=== PATIENT | male | born 1955 | race Caucasian/White ===

== ENCOUNTER 2022-11-21 14:48 | Outpatient (CLI) | payer MEDICARE, SELFPAY ==
[2022-11-21 16:26] LABS: Color, Urine Yellow (Yellow); Glucose, Dipstick Normal (Normal); Ketone-Dipstick Negative (Negative); Leukocyte Esterase-Dipstick 25 /ul (Negative); Nitrite-Dipstick Negative (Negative); Occult Blood-Urine 10 /ul (Negative); Protein-Dipstick 15 mg/dl (Negative); Urine Bilirubin Dipstick Negative (Negative); Urine Clarity Clear (Clear); Urine Urobilinogen Normal (Normal); Urine pH 6.5 (5.0 - 8.0)
[2022-11-21 16:32] LABS: Absolute Lymphocyte Count 2.02 X10^3/uL (0.83-4.51); Absolute Neutrophil Count 5.1 X10^3/uL (2.0-7.7); Basophil# 0.06 X10^3/uL; Basophil% 0.8 % (0-1); Eosinophil# 0.09 X10^3/uL; Eosinophils% 1.1 % (0-5); Hematocrit 41.9 % (40-54); Hemoglobin 14.1 g/dL (13.0-16.5); Lymphocyte # 2.02 X10^3/ul (0.83-4.51); Lymphocyte % 25.7 % (19-41); Mean Corp Hgb Conc 33.7 g/dL (32-36); Mean Corpuscular Hgb 32.5 pg (27.0-32.0); Mean Corpuscular Volume 96.5 fL (80-94); Monocyte# 0.55 X10^3/uL; NRBC Flagged by Analyzer 0 % (0-5); Neutrophil # 5.12 X10^3/uL (2.7-7.7); Neutrophil % 65.1 % (47-70); Platelet Count 331 K/mm3 (150-450); RBC Distribution Width CV 12.8 % (11.6-14.6); RBC Distribution Width SD 46.1 fl (35.1-43.9); Red Blood Count 4.34 M/mm3 (4.6-6.2); White Blood Count 7.9 K/mm3 (4.4-11.0)
[2022-11-21 16:36] LABS: Erythrocyte Sedimentation Rate 7 mm/hr (0-20); Protein, Urine (Random) 20.8 mg/dL (<11.9); Protein:Creat Ratio 142 mg/g CRE (0-200)
[2022-11-21 17:01] LABS: International Normalized Ratio 1.1; Prothrombin Time (Protime)PT. 13.5 SECONDS (11.7-14.9)
[2022-11-21 17:02] LABS: Partial Thromboplast Time 30.4 Seconds (24.1-36.2)
[2022-11-21 17:07] LABS: ALB/GLOB Ratio 1.1 RATIO (0.9-2.4); AST(SGOT) 17 U/L (15-37); Alanine Aminotransfer ALT/SGPT 22 U/L (16-61); Albumin, Serum 3.9 g/dL (3.2-5.0); Alkaline Phosphatase 81 U/L (45-117); Anion Gap 8 (5-15); BUN 18 mg/dL (7-18); BUN/Creat Ratio 17.3 RATIO (10-20); CRP < 2.90 mg/L (0.0-3.0); Chloride 107 mmol/L (98-107); Creatinine, Serum 1.04 mg/dL (0.70-1.30); EST Glomerular Filtration Rate 76 mL/min (>60); Est Glom Filt Rate - Afr Amer 92 mL/min (>60); Globulin 3.6 g/dL (2.2-4.2); Glucose 92 mg/dL (74-106); Potassium 3.5 mmol/L (3.5-5.1); Protein, Total 7.5 g/dL (6.4-8.2); Sodium Level 140 mmol/L (136-145)
[2022-11-21 17:41] LABS: Hepatitis B Surface Antibody Non-Reactive; Hepatitis B Surface Antigen Non-Reactive (Nonreactive); Hepatitis C Antibody Non-Reactive (Nonreactive)
[2022-11-26 13:06] LABS: Dilute Prothrombin Time (dPT) 35.9 sec (0.0-47.6); Dilute Russell Viper Venom 36.1 sec (0.0-47.0); Hexagonal Phase Phospholipid 7 sec (0-11); Thrombin Time 17.1 sec (0.0-23.0); dPT Confirm Ratio 1.19 Ratio (0.00-1.34)
[2022-11-26 22:31] LABS: Interpretation Comment: (.); PTT-LA 38.1 sec (0.0-51.9)
== END 2022-11-21 23:59 | disposition home or self-care (01) ==
PROVIDERS: PCP Nurse Practitioner Family; Visit Provider Internal Medicine Rheumatology
DX: M06.4 Inflammatory polyarthropathy (principal); R76.8 Other specified abnormal immunological findings in serum
CPT/HCPCS: 36415; 80053; 81002; 82570; 84156; 85025; 85598; 85610; 85652; 85730; 86140; 86706; 86803; 87340

== ENCOUNTER → 2023-02-07 | Outpatient (CLI) | payer MEDICARE, SELFPAY ==
[2023-02-07 12:45] LABS: Absolute Lymphocyte Count 1.21 X10^3/uL (0.83-4.51); Absolute Neutrophil Count 4.6 X10^3/uL (2.0-7.7); Basophil# 0.04 X10^3/uL; Basophil% 0.6 % (0-1); Eosinophil# 0.06 X10^3/uL; Eosinophils% 0.9 % (0-5); Hematocrit 42.3 % (40-54); Hemoglobin 13.8 g/dL (13.0-16.5); Lymphocyte # 1.21 X10^3/ul (0.83-4.51); Lymphocyte % 18.7 % (19-41); Mean Corp Hgb Conc 32.6 g/dL (32-36); Mean Corpuscular Hgb 32.8 pg (27.0-32.0); Mean Corpuscular Volume 100.5 fL (80-94); Mean Platelet Vol. 10.4 fl (6.2-12.0); Monocyte# 0.53 X10^3/uL; Monocyte% 8.2 % (0-10); NRBC Flagged by Analyzer 0 % (0-5); Neutrophil # 4.61 X10^3/uL (2.7-7.7); Neutrophil % 71.1 % (47-70); Platelet Count 324 K/mm3 (150-450); RBC Distribution Width CV 12.9 % (11.6-14.6); RBC Distribution Width SD 47.5 fl (35.1-43.9); Red Blood Count 4.21 M/mm3 (4.6-6.2); White Blood Count 6.5 K/mm3 (4.4-11.0)
[2023-02-07 13:26] LABS: AST(SGOT) 12 U/L (15-37); Alanine Aminotransfer ALT/SGPT 22 U/L (16-61); Albumin, Serum 3.5 g/dL (3.2-5.0); Alkaline Phosphatase 74 U/L (45-117); Anion Gap 1 (5-15); BUN 24 mg/dL (7-18); BUN/Creat Ratio 24.2 RATIO (10-20); Calcium,Total 9.3 mg/dL (8.5-10.1); Chloride 111 mmol/L (98-107); Creatinine, Serum 0.99 mg/dL (0.70-1.30); EST Glomerular Filtration Rate 80 mL/min (>60); Est Glom Filt Rate - Afr Amer 97 mL/min (>60); Globulin 3.5 g/dL (2.2-4.2); Glucose 108 mg/dL (74-106); Potassium 3.8 mmol/L (3.5-5.1); Sodium Level 140 mmol/L (136-145)
== END | disposition home or self-care (01) ==
PROVIDERS: PCP Nurse Practitioner Family; Referring Provider Internal Medicine Rheumatology; Visit Provider Internal Medicine Rheumatology
DX: M06.4 Inflammatory polyarthropathy (principal); R76.8 Other specified abnormal immunological findings in serum; Z79.899 Other long term (current) drug therapy
CPT/HCPCS: 36415; 80053; 85025

== ENCOUNTER → 2023-04-04 | Outpatient (CLI) | payer SELFPAY ==
[2023-04-04 09:59] LABS: Absolute Neutrophil Count 4.5 X10^3/uL (2.0-7.7); Basophil# 0.05 X10^3/uL; Basophil% 0.7 % (0-1); Eosinophil# 0.04 X10^3/uL; Eosinophils% 0.6 % (0-5); Hematocrit 40.8 % (40-54); Hemoglobin 13.5 g/dL (13.0-16.5); Lymphocyte % 22.4 % (19-41); Mean Corp Hgb Conc 33.1 g/dL (32-36); Mean Corpuscular Hgb 33.1 pg (27.0-32.0); Mean Platelet Vol. 9.7 fl (6.2-12.0); Monocyte# 0.54 X10^3/uL; Monocyte% 8.1 % (0-10); NRBC Flagged by Analyzer 0 % (0-5); Neutrophil # 4.54 X10^3/uL (2.7-7.7); Neutrophil % 67.8 % (47-70); Platelet Count 339 K/mm3 (150-450); RBC Distribution Width CV 13.3 % (11.6-14.6); RBC Distribution Width SD 49.2 fl (35.1-43.9); Red Blood Count 4.08 M/mm3 (4.6-6.2); White Blood Count 6.7 K/mm3 (4.4-11.0)
[2023-04-04 10:43] LABS: AST(SGOT) 17 U/L (15-37); Alanine Aminotransfer ALT/SGPT 22 U/L (16-61); Albumin, Serum 3.4 g/dL (3.2-5.0); Alkaline Phosphatase 65 U/L (45-117); Anion Gap 6 (5-15); BUN 18 mg/dL (7-18); BUN/Creat Ratio 19.1 RATIO (10-20); Calcium,Total 8.8 mg/dL (8.5-10.1); Chloride 109 mmol/L (98-107); Creatinine, Serum 0.94 mg/dL (0.70-1.30); EST Glomerular Filtration Rate 85 mL/min (>60); Est Glom Filt Rate - Afr Amer 102 mL/min (>60); Globulin 3.3 g/dL (2.2-4.2); Glucose 128 mg/dL (74-106); Potassium 3.4 mmol/L (3.5-5.1); Protein, Total 6.7 g/dL (6.4-8.2); Sodium Level 139 mmol/L (136-145)
== END | disposition home or self-care (01) ==
PROVIDERS: PCP Nurse Practitioner Family; Referring Provider Internal Medicine Rheumatology; Visit Provider Internal Medicine Rheumatology
DX: M06.4 Inflammatory polyarthropathy (principal); R76.8 Other specified abnormal immunological findings in serum; Z79.899 Other long term (current) drug therapy
CPT/HCPCS: 36415; 80053; 85025

== ENCOUNTER → 2023-04-20 | Outpatient (CLI) | payer SELFPAY ==
[2023-04-20 17:45] LABS: Pathologist Comment May follow
[2023-04-20 18:13] LABS: RBC /Synovial Fluid 0.052 10^6/uL (0); Synovial Fld Mononuclear WBC # 0.065 10^3/ul; Synovial Fld Mononuclear WBC % 45.1 %; Synovial Fld Polynuclear WBC # 0.079 10^3/uL; Synovial Fld Polynuclear WBC % 54.9 %
[2023-04-20 19:18] LABS: Lymph 46 %; Monocyte /Synovial Fluid 16 %; Neutrophil 29 % (0-25); Other Cell /Synovial Fluid 9 %
[2023-04-20 19:24] LABS: AUTO B FLUID DILUENT BKGD CT WBC <0.1 RBC <0.01 (W<.1,R<.01); CRYSTALS, BODY FLUID NO CRYSTALS SEEN; Source- Body Fluid SYNOVIAL
[2023-04-20 19:25] LABS: Appearance /Synovial Fluid Cloudy (CLEAR); Body Fluid QC Type(s) BF3Q,BF4Q; Color / Synovial Fluid Red (Pale Yellow); Source / Synovial Fluid LEFT KNEE
[2023-04-23 12:54] LABS: Pathologist Review Reviewed
== END | disposition home or self-care (01) ==
PROVIDERS: PCP Nurse Practitioner Family; Visit Provider Internal Medicine Rheumatology
DX: M06.4 Inflammatory polyarthropathy (principal); R76.8 Other specified abnormal immunological findings in serum; M19.041 Primary osteoarthritis, right hand; Z79.899 Other long term (current) drug therapy
CPT/HCPCS: 87070; 87075; 87205; 89050; 89051; 89060

== ENCOUNTER → 2023-06-29 | Outpatient (CLI) | payer SELFPAY ==
[2023-06-29 10:14] LABS: Absolute Lymphocyte Count 1.28 X10^3/uL (0.83-4.51); Absolute Neutrophil Count 7.9 X10^3/uL (2.0-7.7); Basophil# 0.07 X10^3/uL; Basophil% 0.7 % (0-1); Eosinophil# 0.06 X10^3/uL; Eosinophils% 0.6 % (0-5); Hematocrit 40.9 % (40-54); Hemoglobin 13.6 g/dL (13.0-16.5); Lymphocyte # 1.28 X10^3/ul (0.83-4.51); Mean Corp Hgb Conc 33.3 g/dL (32-36); Mean Corpuscular Hgb 34.3 pg (27.0-32.0); Mean Corpuscular Volume 103.3 fL (80-94); Mean Platelet Vol. 9.1 fl (6.2-12.0); Monocyte# 0.49 X10^3/uL; NRBC Flagged by Analyzer 0 % (0-5); Neutrophil # 7.91 X10^3/uL (2.7-7.7); Neutrophil % 80.2 % (47-70); Platelet Count 365 K/mm3 (150-450); RBC Distribution Width CV 13.1 % (11.6-14.6); RBC Distribution Width SD 49.5 fl (35.1-43.9); Red Blood Count 3.96 M/mm3 (4.6-6.2); White Blood Count 9.9 K/mm3 (4.4-11.0)
[2023-06-29 10:55] LABS: ALB/GLOB Ratio 1.1 RATIO (0.9-2.4); AST(SGOT) 13 U/L (15-37); Alanine Aminotransfer ALT/SGPT 23 U/L (16-61); Albumin, Serum 3.5 g/dL (3.2-5.0); Alkaline Phosphatase 64 U/L (45-117); Anion Gap 7 (5-15); BUN 15 mg/dL (7-18); BUN/Creat Ratio 15.1 RATIO (10-20); Calcium,Total 9.1 mg/dL (8.5-10.1); Chloride 106 mmol/L (98-107); Creatinine, Serum 0.99 mg/dL (0.70-1.30); EST Glomerular Filtration Rate 80 mL/min (>60); Est Glom Filt Rate - Afr Amer 96 mL/min (>60); Globulin 3.2 g/dL (2.2-4.2); Glucose 117 mg/dL (74-106); Potassium 3.9 mmol/L (3.5-5.1); Protein, Total 6.7 g/dL (6.4-8.2); Sodium Level 138 mmol/L (136-145)
== END | disposition home or self-care (01) ==
PROVIDERS: PCP Nurse Practitioner Family; Referring Provider Internal Medicine Rheumatology; Visit Provider Internal Medicine Rheumatology
DX: M06.4 Inflammatory polyarthropathy (principal); R76.8 Other specified abnormal immunological findings in serum; Z79.899 Other long term (current) drug therapy
CPT/HCPCS: 36415; 80053; 85025

== ENCOUNTER → 2024-01-02 | Outpatient (CLI) | payer MEDICARE, SELFPAY ==
[2024-01-02 09:07] LABS: Absolute Lymphocyte Count 2.21 X10^3/uL (0.83-4.51); Absolute Neutrophil Count 3.8 X10^3/uL (2.0-7.7); Basophil# 0.05 X10^3/uL; Basophil% 0.7 % (0-1); Eosinophil# 0.08 X10^3/uL; Eosinophils% 1.2 % (0-5); Hematocrit 42.7 % (40-54); Hemoglobin 14.2 g/dL (13.0-16.5); Lymphocyte # 2.21 X10^3/ul (0.83-4.51); Lymphocyte % 32.7 % (19-41); Mean Corp Hgb Conc 33.3 g/dL (32-36); Mean Corpuscular Hgb 31.9 pg (27.0-32.0); Mean Platelet Vol. 9.6 fl (6.2-12.0); Monocyte# 0.62 X10^3/uL; Monocyte% 9.2 % (0-10); NRBC Flagged by Analyzer 0 % (0-5); Neutrophil # 3.77 X10^3/uL (2.7-7.7); Neutrophil % 55.9 % (47-70); Platelet Count 300 K/mm3 (150-450); RBC Distribution Width CV 12.9 % (11.6-14.6); RBC Distribution Width SD 45.8 fl (35.1-43.9); Red Blood Count 4.45 M/mm3 (4.6-6.2); White Blood Count 6.8 K/mm3 (4.4-11.0)
[2024-01-02 09:37] LABS: ALB/GLOB Ratio 1.1 RATIO (0.9-2.4); AST(SGOT) 14 U/L (15-37); Alanine Aminotransfer ALT/SGPT 15 U/L (16-61); Albumin, Serum 3.6 g/dL (3.2-5.0); Alkaline Phosphatase 79 U/L (45-117); Anion Gap 7 (5-15); BUN 16 mg/dL (7-18); Calcium,Total 8.9 mg/dL (8.5-10.1); Chloride 110 mmol/L (98-107); Cholesterol 217 mg/dL (200); Creatinine, Serum 0.84 mg/dL (0.70-1.30); EST Glomerular Filtration Rate 97 mL/min (>60); Est Glom Filt Rate - Afr Amer 117 mL/min (>60); Globulin 3.3 g/dL (2.2-4.2); Glucose 100 mg/dL (74-106); High Density Lipoprotein 78 mg/dL; Potassium 3.8 mmol/L (3.5-5.1); Protein, Total 6.9 g/dL (6.4-8.2); Sodium Level 140 mmol/L (136-145); Triglycerides 115 mg/dL; Very Low Density Lipoprotein 23 mg/dL (5-40)
== END | disposition home or self-care (01) ==
PROVIDERS: PCP Nurse Practitioner Family; Referring Provider Nurse Practitioner Family; Visit Provider Nurse Practitioner Family
DX: E78.5 Hyperlipidemia, unspecified (principal); N40.0 Benign prostatic hyperplasia without lower urinary tract symptoms; I10 Essential (primary) hypertension
CPT/HCPCS: 36415; 80053; 80061; 84153; 85025

== ENCOUNTER → 2024-01-17 | Outpatient (CLI) | payer MEDICARE, SELFPAY | END | disposition home or self-care (01) | LOC: LAB 09:00 | PROVIDERS: PCP Nurse Practitioner Family; Referring Provider Nurse Practitioner; Visit Provider Nurse Practitioner | DX: R97.20 Elevated prostate specific antigen [PSA] (principal) | CPT/HCPCS: 36415; 84153 ==

== ENCOUNTER → 2024-01-22 | Outpatient (CLI) | payer MEDICARE, SELFPAY ==
--- NOTE | 2024-01-22 | PROSBIL_PTH ---
PATIENT: DALILA JANSEN LOC: [facility] U#:[id number] AGE/SX: 68/M ROOM: RE01/22/[address]: Dr. Howie Elmore MD : 1955 BED: DIS: 01/22/2024 SPEC #: [id number] RECD: 01/23/24 10:40 STATUS: JESSICA REZaria #: [id number] ALTA: 01/22/24 00:[address]: Howie Elmore DEPT: SURGICAL PATHOLOGY RECD BY: Jovi Kruse ENTERED: 01/23/24 10:40 SP TYPE: PROST BX OT DR: Cassie Roth, JEWELRY SETTER-C Tissues: A - PROSTATE RIGHT B - PROSTATE RIGHT C - PROSTATE RIGHT D - PROSTATE LEFT E - PROSTATE LEFT F - PROSTATE LEFT Procedures: PROSTATE BX HEADER OPERATION: Prostate biopsy PRE-OP DIAGNOSIS: Elevated PSA TISSUE SUBMITTED: A - Right apex, B - Right mid, C - Right base, D - Left apex, E - Left mid, F - Left base MICROSCOPIC DIAGNOSIS A. Right prostate, apex, core biopsy: Prostatic adenocarcinoma. Rosalina grade: 4 + 3 =7 Number of cores involved: 1/1 Proportion of tissue involved: ~30% Perineural invasion: Present, focal Greatest tumor length: 0.4cm Focal high-grade prostatic intraepithelial neoplasia (HGPIN). B. Right prostate, mid, core biopsy: Prostatic adenocarcinoma. Rosalina grade: 5 + 3 =8 Number of cores involved: 1/1 Proportion of tissue involved: >90% Perineural invasion: Present, focal Greatest tumor length: 1.0cm Focal high-grade prostatic intraepithelial neoplasia (HGPIN). C. Right prostate, base, core biopsy: Prostatic adenocarcinoma. Rosalina grade: 5 + 4 =9 Number of cores involved: 1/1 Proportion of tissue involved: >90% Perineural invasion: Not identified. Greatest tumor length: 1.0cm D. Left prostate, apex, core biopsy: Prostatic tissue, negative for malignancy. E. Left prostate, mid, core biopsy: Prostatic adenocarcinoma. Rosalina grade: 5 + 3 =8 Number of cores involved: 1/1 Proportion of tissue involved: ~70% Perineural invasion: Present, focal Greatest tumor length: 0.6cm F. Left prostate, base, core biopsy: Prostatic adenocarcinoma. Varney grade: 5 + 4 =9 Number of cores involved: 1/1 Proportion of tissue involved: >90% Perineural invasion: not identified. Greatest tumor length: 1.1cm SJ/mr 01/24/2024 COMMENT Case has been reviewed in consultation with Dr. Tovar who concurs with the above diagnosis. IDC:AM MICROSCOPIC DESCRIPTION Slides are reviewed. GROSS DESCRIPTION A - Received is one container designated prostate, right apex. The specimen consists of one elongated fragment of light davies-white soft tissue measuring 1.5 cm in length and 0.1 cm in diameter. The specimen is totally submitted in one cassette. B - Received is one container designated prostate, right mid. The specimen consists of one elongated fragment of light davies-white soft tissue each measuring 1.5 cm in length and 0.1 cm in diameter. The specimen is totally submitted in one cassette. C - Received is one container designated prostate, right base. The specimen consists of one elongated fragment of light davies-white soft tissue each measuring 1.2 cm in length and 0.1 cm in diameter. The specimen is totally submitted in one cassette. D - Received is one container designated prostate, left apex. The specimen consists of one elongated fragment of light davies-white soft tissue each measuring 1.5 cm in length and 0.1 cm in diameter. The specimen is totally submitted in one cassette. E - Received is one container designated prostate, left mid. The specimen consists of one elongated fragment of light davies-white soft tissue each measuring 1.0 cm in length and 0.1 cm in diameter. The specimen is totally submitted in one cassette. F - Received is one container designated prostate, left base. The specimen consists of one elongated fragment of light davies-white soft tissue each measuring 1.8 cm in length and 0.1 cm in diameter. The specimen is totally submitted in one cassette. / AM/ 01/23/2024 TC:0 CPT: G0146
== END | disposition home or self-care (01) ==
LOC: LABSPEC 16:41
PROVIDERS: PCP Nurse Practitioner Family; Referring Provider Urology; Visit Provider Urology
DX: R97.20 Elevated prostate specific antigen [PSA] (principal)
CPT/HCPCS: 88305; G0416

== ENCOUNTER → 2024-01-31 | Outpatient (CLI) | payer MEDICARE, SELFPAY ==
--- NOTE | 2024-01-31 09:04 | NM_ITS ---
CLINICAL: 68-year-old male with history of primary prostate carcinoma. WHOLE BODY 99m Tc MDP RADIONUCLIDE BONE SCINTIGRAPHY COMPARISON: None available FINDINGS: Following the intravenous administration of 25.0 mCi of 99m Tc MDP, whole body bone images reveal: 1. Increased radiopharmaceutical concentration is defined in the acromioclavicular, glenohumeral and sternoclavicular compartments of both shoulders, the wrist articulations bilaterally, the right and left knees, the ninth through 12th thoracic and fifth lumbar vertebra. 2. The remaining skeletal structures are scintigraphically unremarkable with normal-appearing renal images and urinary bladder activity identified. NM/Bone Scan Whole Body IMPRESSION: 1. The increase in radiopharmaceutical defined in the bilateral shoulders and wrists, the right-left knee articulations, the thoracic and lumbar spine is commensurate with degenerative arthritis. 2. There is no scintigraphic of diffuse axial skeletal metastatic disease on the current examination. Electronically Signed: Zach Mon DO at 21:46 EDT ,
== END | disposition home or self-care (01) ==
LOC: NM 09:03
PROVIDERS: PCP Nurse Practitioner Family; Referring Provider Urology; Visit Provider Urology
DX: C61 Malignant neoplasm of prostate (principal)
CPT/HCPCS: 78306; A9503

== ENCOUNTER → 2024-02-05 | Outpatient (CLI) | payer MEDICARE, SELFPAY ==
--- NOTE | 2024-02-05 12:29 | CT_ITS ---
STUDY: CT ABDOMEN AND PELVIS WITH CONTRAST REASON FOR EXAM: Male, 68 years old. Malignant neoplasm of prostate. New diagnosis. RADIATION DOSAGE (If Supplied By Facility): CTDIvol = ( 12.01 ) mGy, DLP = ( 666.49 ) mGycm TECHNIQUE: Transaxial images were obtained from the dome of the diaphragm to the symphysis pubis without oral contrast. IV 100mL Isovue-370 was administered. Sagittal and coronal images were reconstructed. Individualized dose optimization techniques were used for this CT. COMPARISON: None. FINDINGS: The visualized lung bases are unremarkable. Coronary artery calcification. There is a 2.3 cm x 2.5 cm hypodensity in the inferior medial aspect of the left lobe of the liver. Peripheral vascularity is seen suggestive of an hemangioma. There is also evidence of a 1.4 cm x 1.5 cm hypodensity in the midportion of the right lobe of the liver as well as a 1 cm x 1 cm nodule in the inferior medial portion of the right lobe of the liver. These most likely represent hemangiomas. Correlation with ultrasound is recommended for further evaluation. Normal gallbladder and extrahepatic biliary system. There are multiple benign calcified granulomata of the spleen. Normal pancreas. Normal bilateral adrenal glands. There is a 2.1 cm staghorn calculus in the dilated right renal pelvis. Calculi are also seen in the lower pole calyx of the right kidney. Punctate calculi are seen in the lower pole calyx of the left kidney as well. There is a moderate-sized hiatal hernia. Normal small intestine. There are multiple colonic diverticula consistent with diverticulosis. The appendix is visualized and appears normal. There is scattered atherosclerotic calcification of the abdominal aorta, without a demonstrated aneurysm. Normal inferior vena cava. Normal retroperitoneum. Normal urinary bladder. Heterogeneous appearance of the prostate. Calcifications are seen within the prostate. The prostate measures 3.4 cm x 3.4 cm. There is a small umbilical hernia containing fat. Small right inguinal hernia containing fat. There are degenerative changes of the visualized lumbar spine. CT/Abdomen/Pelvis WITH Contrast IMPRESSION: Hypodense lesion seen in the liver as described most likely representing hemangiomas. Staghorn calculus in the right renal pelvis with mild pelvic dilatation. Nonobstructive tiny calculi in both lower poles of the right and left kidneys. Sigmoid diverticulosis. Electronically Signed: Bakari Dobbins MD at 13:33 EDT ,
[2024-02-05 13:08] LABS: CREATININE FINGERSTICK 1.1 mg/dL (0.70-1.30); EGFR FINGERSTICK > 60.0000 mL/min (>60)
== END | disposition home or self-care (01) ==
LOC: CT 12:28
PROVIDERS: PCP Nurse Practitioner Family; Referring Provider Urology; Visit Provider Urology
DX: C61 Malignant neoplasm of prostate (principal)
CPT/HCPCS: 74177; Q9967

== ENCOUNTER → 2024-02-26 | Outpatient (CLI) | payer MEDICARE, SELFPAY ==
--- NOTE | 2024-02-26 10:30 | PET_ITS ---
EXAMINATION: PSMA-Pylarify PET-CT INDICATIONS: A 68-year-old male with history of prostate carcinoma presenting for restaging examination. COMPARISON: None available. INDEX LESION SIZE SUV PROMISE SCORE INTERPRETATION Prostate gland 16.9 mm 17.7 2 Fulfills quantitative criteria for viable neoplasm. Left hemipelvis, external iliac lymph node basin 13.5 mm 21.3 3 Fulfills quantitative criteria for viable neoplasm. TECHNIQUE: Following the intravenous administration of 9.61 mCi of PSMA-Pylarify via the right hand, image acquisitions of the head, neck, chest, abdomen and pelvis to the level of the mid thigh at 73 minutes post-tracer distribution reveal: The examination was interpreted using the EANM (Shalini et al., Journal of Nuclear Medicine Molecular Imaging 44:1622, 2017) and PROMISE (Mauricio et al., Journal of Nuclear Medicine 59:469, 2018) interpretive criteria. HEIGHT: 66 inches. WEIGHT: 160 lbs. PSMA expression score PROMISE criteria: High (3): SUV ? parotid-salivary gland, intermediate (2): SUV ? liver, low (1): > blood pool, < liver, (0): < blood pool. SUV reference values: Parotid glands: 24.33 Normal liver parenchyma: 8.9 Blood pool : 1.6 FINDINGS: Head/Neck: Symmetric radiopharmaceutical concentration is defined in the bilateral parotid and submandibular glands. Physiologic uptake is noted in the nasal cavity. There is no evidence of abnormal increased tracer uptake within the context of the cranial vault. CHEST: There is no evidence of abnormal increased radiopharmaceutical within the context of the bilateral hemithorax pulmonary parenchyma, mediastinal structures and right-left thoracic perihilum. Pertinent chest CT findings are as follows. Atherosclerotic calcification is defined in the thoracic aorta without evidence of dilatation, aneurysm formation. Coronary arterial calcification is observed. A large hiatal hernia is defined. Right and left axillary and scattered mediastinal soft tissue densities are ametabolic. There are no parenchymal densities-nodules defined in the right and left hemithorax with quantitatively significant increased FDG uptake. Abdomen/Pelvis: Enhanced tracer concentration is noted in the lower pelvis associated with the base of the prostate gland to the left of the midline. The calculated maximum standard uptake value is 17.7. The PROMISE score is 2. The maximum axial diameter of the metabolic abnormality is 16.9 mm. Facilitated uptake is noted in the right hemipelvis in the distribution of the external iliac lymph nodes. The calculated maximum standard uptake value is 21.3. The PROMISE score is 3. The maximum axial diameter of the largest soft tissue density is 13.5 mm. Physiologic tracer distribution is noted in the urinary bladder, bilateral renal units, the intestinal tract, the hepatic and splenic parenchyma. The abdomen and pelvis CT findings are as follows. Calcified granuloma formation is noted in the splenic parenchyma. There is atherosclerotic calcification defined in the abdominal aorta without evidence of dilatation-aneurysm formation. Abdominal-pelvic arterial calcification is observed. Colonic diverticulosis is identified. A fat containing right inguinal is noted. Right and left inguinal soft tissue densities are ametabolic. Skeletal: Degenerative changes defined in the cervical, thoracic and lumbar spine demonstrate no evidence of glucose hypermetabolism. PET/PET/CT Tumor Base -Thigh Init IMPRESSION: 1. ABNORMAL EXAMINATION INDICATIVE OF MALIGNANT-VIABLE NEOPLASM. 2. Increased radiopharmaceutical concentration noted in the base of the prostate gland to the left of midline fulfills quantitative criteria for viable neoplasm. (Eiber et al., Journal of Nuclear Medicine 59:469, 2018) 3. Enhanced tracer uptake noted in the left external iliac lymph node distribution fulfills quantitative criteria for viable left renal disease. 4. No other quantitative scintigraphic abnormalities are noted. Electronic Signature Zach Mon D.O. Accurate Quantification of SUVs and standardized PROMISE scores for this report are calculated using the exclusive [employer], ([place].S. Patent No. [phone] [place] patent [phone] ). Standardization and correction of the FDG SUV metric exclusively available with [employer] intellectual property, allow for vendor non-specific objective quantitative sequential FDG PET-CT comparison and otherwise unobtainable optimization of the sensitivity and specificity of the examination. https://Intoo Electronically Signed: Zach Mon DO at 6:23 EDT ,
== END | disposition home or self-care (01) ==
LOC: ONC 09:51
PROVIDERS: PCP Nurse Practitioner Family; Referring Provider Urology; Visit Provider Urology
DX: C61 Malignant neoplasm of prostate (principal); R97.20 Elevated prostate specific antigen [PSA]; N20.0 Calculus of kidney
CPT/HCPCS: 78815; A9595

== ENCOUNTER → 2024-04-03 | Outpatient (CLI) | payer MEDICARE, SELFPAY ==
[2024-04-03 13:56] LABS: AST(SGOT) 12 U/L (15-37); Alanine Aminotransfer ALT/SGPT 17 U/L (16-61); Albumin, Serum 3.5 g/dL (3.2-5.0); Alkaline Phosphatase 77 U/L (45-117); Bilirubin, Direct 0.13 mg/dL (0.00-0.30); Globulin 3.4 g/dL (2.2-4.2); Protein, Total 6.9 g/dL (6.4-8.2)
== END | disposition home or self-care (01) ==
LOC: LAB 11:46
PROVIDERS: PCP Nurse Practitioner Family; Visit Provider Nurse Practitioner Family
DX: R74.8 Abnormal levels of other serum enzymes (principal)
CPT/HCPCS: 36415; 80076

== ENCOUNTER 2024-04-09 07:36 | Inpatient (IN) | payer MEDICARE, SELFPAY ==
--- NOTE | 2024-03-27 07:10 | EKG12_ITS ---
Test Reason : PREOP Blood Pressure : / mmHG Vent. Rate : 070 BPM Atrial Rate : 070 BPM P-R Int : 150 ms QRS Dur : 118 ms QT Int : 440 ms P-R-T Axes : 064 -40 000 degrees QTc Int : 475 ms Normal sinus rhythm Left axis deviation Right bundle branch block Abnormal ECG Confirmed by Rico Mckenna ([id number]), advertising editor ARTEM SANFORD ([id number]) on 03/31/2024 1:11:33 PM Referred By: Howie Elmore Confirmed By:Rico Mckenna
[2024-03-27 08:05] LABS: Hematocrit 45.2 % (40-54); Hemoglobin 14.6 g/dL (13.0-16.5); Mean Corp Hgb Conc 32.3 g/dL (32-36); Mean Corpuscular Hgb 31.7 pg (27.0-32.0); Platelet Count 275 K/mm3 (150-450); RBC Distribution Width CV 12.4 % (11.6-14.6); RBC Distribution Width SD 44.7 fl (35.1-43.9); Red Blood Count 4.61 M/mm3 (4.6-6.2); White Blood Count 6.3 K/mm3 (4.4-11.0)
[2024-03-27 08:28] LABS: Anion Gap 5 (5-15); BUN 17 mg/dL (7-18); Chloride 108 mmol/L (98-107); EST Glomerular Filtration Rate 79 mL/min (>60); Est Glom Filt Rate - Afr Amer 96 mL/min (>60); Glucose 105 mg/dL (74-106); Potassium 3.6 mmol/L (3.5-5.1); Sodium Level 139 mmol/L (136-145)
[2024-04-09] VITALS (14 sets, daily range): BP systolic 117–156; BP diastolic 74–89; PULSE 73–88; RESP 16–20; TEMP 36.5–37; O2SAT 93–98; BMI 25.3
--- NOTE | 2024-04-09 | IMM_PTH ---
PATIENT: DALILA JANSEN LOC: [facility] U#:[id number] AGE/SX: 68/M ROOM: [facility] RE04/09/[address]: Dr. Howie Elmore MD : 1955 BED: 1 DIS: 04/10/2024 SPEC #: [id number] RECD: 04/15/24 08:09 STATUS: JESSICA REZaria #: [id number] ALTA: 04/09/24 00:[address]: Howie Elmore DEPT: IMMUNOHISTOCHEMISTRY RECD BY: Osito Mcgrath ENTERED: 04/15/24 08:10 SP TYPE: IMMUNO OTHR DR: MD Cassie Rivas, CORRECTIONAL CASEWORK SPECIALIST-C Tissues: B - Lymph node of pelvis, NOS C - Lymph node of pelvis, NOS D - Prostate, NOS Procedures: CK8 (initial) MLH-1 (add) MSH6 (add) Anti-PMS2 (add) MSH2 (initial) PSAP (add) PHYSICIAN & INSTITUTION [address] [address] SPECIMEN INFORMATION: Tissue Source: B- Left pelvic lymph node, C- Right pelvic lymph node, D-Prostate Clinical Info: Prostate cancer Specimen Number: [id number] B,C, D CPT code: 54120e3,67927e1 METHODOLOGY: Deparaffinized sections of prefer/formalin-fixed tissue or PAP/DQ stained slides are incubated with monoclonal/polyclonal antibodies/oligonucleotide probes. Localization is made via biotin free immunoperoxidase method. Appropriate controls are performed and reacted as expected. Results on target cell population are indicated in the following table: RESULTS: ANTIBODY / CLONE RESULT Block B CK8 ([id number]) positive PSAP (PASE/4LJ) positive Block C CK8 ([id number]) positive PSAP (PASE/4LJ) positive Block D7 MLH-1 (M1) positive MSH2 (25D12) positive MSH6 (44) positive PMS2 ([id number]) positive These tests were developed and their performance characteristics determined by [facility]. They may not have been cleared or approved by the U.S. Food and Drug Administration. The FDA has determined that such clearance or approval is not necessary. The above immunohistochemical/dualISH markers are ordered and reviewed by the Pathologist. INTERPRETATION: B. Left pelvic lymph node, prostatectomy: Metastatic prostate carcinoma. C. Right pelvic lymph node, prostatectomy: Metastatic prostate carcinoma. AM/mr 04/15/2024 ADDENDUM ADDENDUM ADDENDUM ADDENDUM ADDENDUM ADDENDUM ADDENDUM ADDENDUM ADDENDUM ADDENDUM ADDENDUM ADDENDUM ADDENDUM ADDENDUM ADDENDUM 07/03/2024 13:16 ADDENDUM 07/03/2024 13:16 ADDENDUM 07/03/2024 13:16 ADDENDUM 07/03/2024 13:16 ADDENDUM 07/03/2024 13:16 D. Prostate, prostatectomy: No MSI detected . COMMENT: Testing for Her2 by IHC if equivocal, recommend testing for Her2 by FISH(remove/not needed) Result of Microsatellite Instability Study: Negative (no loss of mismatch protein; no microsatellite instability detected). Positive (loss of mismatch protein; microsatellite instability detected). Partial loss of MLH1, MSH2, MSH6 and PMS2. Complete loss of MLH1, MSH2, MSH6 and PMS2. AM/mr 07/03/2024
--- NOTE | 2024-04-09 | IMM_PTH ---
PATIENT: DALILA JANSEN LOC: [facility] U#:[id number] AGE/SX: 68/M ROOM: [facility] [place] RE04/09/[address]: Dr. Howie Elmore MD : 1955 BED: 1 DIS: 04/10/2024 SPEC #: [id number] RECD: 04/15/24 08:09 STATUS: JESSICA REZaria #: [id number] LATA: 04/09/24 00:[address]: Howie Elmore DEPT: IMMUNOHISTOCHEMISTRY RECD BY: Osito Mcgrath ENTERED: 04/15/24 08:10 SP TYPE: IMMUNO OTHR DR: MD Cassie Rivas, AUDITING CONTROL CLERK-C Tissues: B - Lymph node of pelvis, NOS C - Lymph node of pelvis, NOS D - Prostate, NOS Procedures: CK8 (initial) MLH-1 (add) MSH6 (add) Anti-PMS2 (add) MSH2 (initial) PSAP (add) PHYSICIAN & INSTITUTION [address] [address] SPECIMEN INFORMATION: Tissue Source: B- Left pelvic lymph node, C- Right pelvic lymph node, D-Prostate Clinical Info: Prostate cancer Specimen Number: [id number] B,C, D CPT code: 34628d1,28859t9 METHODOLOGY: Deparaffinized sections of prefer/formalin-fixed tissue or PAP/DQ stained slides are incubated with monoclonal/polyclonal antibodies/oligonucleotide probes. Localization is made via biotin free immunoperoxidase method. Appropriate controls are performed and reacted as expected. Results on target cell population are indicated in the following table: RESULTS: ANTIBODY / CLONE RESULT Block B CK8 ([id number]) positive PSAP (PASE/4LJ) positive Block C CK8 ([id number]) positive PSAP (PASE/4LJ) positive Block D7 MLH-1 (M1) positive MSH2 (25D12) positive MSH6 (44) positive PMS2 ([id number]) positive These tests were developed and their performance characteristics determined by [facility]. They may not have been cleared or approved by the U.S. Food and Drug Administration. The FDA has determined that such clearance or approval is not necessary. The above immunohistochemical/dualISH markers are ordered and reviewed by the Pathologist. INTERPRETATION: B. Left pelvic lymph node, prostatectomy: Metastatic prostate carcinoma. C. Right pelvic lymph node, prostatectomy: Metastatic prostate carcinoma. AM/mr 04/15/2024
[2024-04-09] MEDS: Lactated Ringers 1,000 ML 15 ML IV (06:20)
--- NOTE | 2024-04-09 06:59 | PRE.ANES_ITS ---
ASA Classification* ASA Classification ASA Classification: 2 Assessment & Plan Anesthesia* Anesthesia Assessment Anesthesia Assessment: Discussed sedation and/or anesthesia options, risks, benefits, and alternatives with patient/parents/legal guardian. Questions invited. The patient/parents/legal guardian/POA seems to understand and agrees to proceed with anesthesia plan. Reviewed the physical assessment, medical history, allergy history and patient home medications list prior to surgery/procedure/anesthetic and documented any changes. Performed airway and anesthesia risk assessments. 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 When Was Last Pacemaker Check QUESTION #4 FULL TEXT: You/Your Family Experience fever (hyperthermia) with Anesthesia Last Oral Intake Last Oral intake: Last Oral Intake NPO since 04:30 04/09/24 06:25 Meds taken in AM with sips of Yes 04/09/24 06:25 water? Meds patient instructed to see home med list 04/09/24 06:25 take am of surgery PONV PONV - water conservationist: PONV - water conservationist Female No 03/26/24 09:49 HX of Motion Sickness Yes 03/26/24 09:49 HX of N/V After Surgery No 03/26/24 09:49 Non-Smoker Yes 03/26/24 09:49 Duration of Surgery greater Yes 03/26/24 09:49 than 60 minutes Number of Risk Factors 3 03/26/24 09:49 PONV Score Moderate Risk 03/26/24 09:49 Height & Weight Height & Weight: Anesthesia: Height & Weight Height 1.65 m 04/09/24 06:25 Weight: 69 kg 04/09/24 06:25 Body Mass Index (BMI) 25.3 04/09/24 06:25 Respiratory Assessment Respiratory Assessment - water conservationist: Respiratory Tract Infection Hx - water conservationist Hx Respiratory Tract Infection No 03/26/24 09:49 STOP Sleep Apnea STOP Sleep Apnea - water conservationist: STOP Sleep Apnea - water conservationist Hx Hypertension Yes: CONTROLLED WITH MED 03/26/24 09:49 Hx Sleep Apnea No 03/26/24 09:49 CPAP BIPAP Do you snore loudly (louder No 03/26/24 09:49 than talking or can be heard Do you often feel tired/ No 03/26/24 09:49 fatigued/ sleepy during daytime? Has anyone observed you stop No 03/26/24 09:49 breathing during sleep? STOP Results Negative 03/26/24 09:49 QUESTION #5 FULL TEXT : Do you snore loudly (louder than talking or can be heard through closed doors)? 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 Specify any problems Hx of Preganancy in last 3 N/A 03/26/24 09:49 Months Nurse Filling Out Transfusion NBUCHER 03/26/24 09:49 & Questions: Date: 03/26/24 03/26/24 09:49 Time: 09:50 03/26/24 09:49 Patient unable to answer at this time (ie. confused, unrespo /Reproduction History /Reproductive History - water conservationist: /Reproductive Hx- water conservationist Hx Now No 03/26/24 09:49 Gestational Age (in weeks): EDC: Hx Hx Para Hx Section SAB No 03/26/24 09:49 Active Medications Active Medications: Current Medications Generic Name Dose Route Start Last Admin Trade Name Freq PRN Reason Stop Dose Admin Cefazolin Sodium 2 gm/ Sodium 110 mls @ 150 mls/hr 04/09/24 07:30 Chloride IV 04/09/24 08:13 PREOP ONE Lactated Ringer's 1,000 mls @ 15 mls/hr 04/09/24 06:30 04/09/24 06:20 IV 15 mls/hr .Q48H GRANT Administration Anesthesia Focused Assessment* Temperature: 97.8 F Pulse Rate: 81 Blood Pressure: 117/77 Respiratory Rate: 17 Pulse Ox: 95 Airway Assessment Mouth opens (cm): 3 Mallampati Score: I Focused Labs Anesthesia Preop lab: CBC WBC 6.3 K/mm3 (4.4-11.0) 03/27/24 07:29 RBC 4.61 M/mm3 (4.6-6.2) 03/27/24 07:29 Hgb 14.6 g/dL (13.0-16.5) 03/27/24 07:29 Hct 45.2 % (40-54) 03/27/24 07:29 Plt Count 275 K/mm3 (150-450) 03/27/24 07:29 CHEMISTRY Potassium 3.6 mmol/L (3.5-5.1) 03/27/24 07:29 Sodium 139 mmol/L (136-145) 03/27/24 07:29 BUN 17 mg/dL (7-18) 03/27/24 07:29 Creatinine 1.00 mg/dL (0.70-1.30) 03/27/24 07:29 Glucose 105 mg/dL (74-106) 03/27/24 07:29 COAG PT 13.5 SECONDS (11.7-14.9) 11/21/22 15:08 Review of Systems (Anesthesia) ROS Narrative System reviewed and no additional complaints, except as documented. [facility] Medical History Wears glasses Anxiety Ambulates with cane Rheumatoid arthritis Cancer Prostate disease High cholesterol History of kidney stones History of hiatal hernia Gastric reflux Hypertension Home Medications ?Medication ?Instructions ?Recorded ?Last Taken ?Type acetaminophen 500 mg tablet 1,000 mg PO DAILY 03/26/24 Unknown History (Acetaminophen Extra Strength) hydrochlorothiazide 12.5 mg tablet 12.5 mg PO DAILY 03/26/24 04/09/24 History meloxicam 15 mg tablet 15 mg PO DAILY 03/26/24 04/09/24 History simvastatin 40 mg tablet 40 mg PO QHS 03/26/24 04/08/24 History tamsulosin 0.4 mg capsule 0.4 mg PO DAILY 03/26/24 04/08/24 History terbinafine HCl 250 mg tablet 250 mg PO DAILY 03/26/24 04/09/24 History lorazepam 0.5 mg tablet (Ativan) 0.5 mg PO DAILY PRN ANXIETY 04/09/24 04/09/24 History Allergy/AdvReac Type Severity Reaction Status Date / Time Penicillins Allergy Severe Anaphylaxis Verified 04/09/24 06:17 Surgical History History of melanoma excision Social History Smoking Status: Former smoker
--- NOTE | 2024-04-09 07:30 | PROST_PTH ---
PATIENT: DALILA JANSEN LOC: MS3 U#:[id number] AGE/SX: 68/M ROOM: [facility] RE04/09/[address]: Dr. Howie Elmore MD : [id number] BED: 1 DIS: 04/10/2024 SPEC #: [id number] RECD: 04/09/24 16:26 STATUS: JESSICA LAMBERT #: [id number] ALTA: 04/09/24 07:[address]: Howie Elmore DEPT: SURGICAL PATHOLOGY RECD BY: Malorie Aguilar ENTERED: 04/10/24 07:08 SP TYPE: PROSTATE OTHR DR: MD Cassie Rivas, APPOINTMENT SPECIALIST-C Tissues: A - TISSUE SURGICALLY REMOVED B - Lymph node of pelvis, NOS C - Lymph node of pelvis, NOS D - Prostate, NOS Procedures: Surgery Specimen Level IV Surgery Specimen Level HEADER OPERATION: Laparoscopic, radical robotic prostatectomy PRE-OP DIAGNOSIS: Prostate cancer TISSUE SUBMITTED: A- Fat over prostate, B- Left pelvic lymph node, C- Right pelvic lymph node, D- Prostate MICROSCOPIC DIAGNOSIS A. Fat over prostate, biopsy: Mature adipose tissue. No evidence of carcinoma. B. Left pelvic lymph node, regional lymphadenectomy: 6 out of 10, positive for metastatic prostatic carcinoma. See comment. C. Right pelvic lymph node, regional lymphadenectomy: 1 out of 3 lymph nodes, positive for metastatic prostatic carcinoma. Focal extra jill extension of carcinoma. See comment. D. Prostate, radical prostatectomy: Adenocarcinoma. See cancer template below. AM/mr 04/15/2024 COMMENT B&C. Immunohistochemistry ([id number]) supports the above diagnosis. D. PROSTATE CANCER (RADICAL) SUMMARY: Procedure: Radical Prostatectomy Prostate Size: Weight: 52gm Size: 4.3 x 4.0 x 4.0cm Histologic Type: Adenocarcinoma Histologic Grade: 9 (5+4) Percent of Pattern 4: 50% Percent of Pattern 5: 50% Intraductal Carcinoma: Not identified Tumor Quantitation: Estimated percentage of prostate involved by tumor: Tumor size: 4.0 x 3.0 x 2.0cm Extraprostatic Extension: Focally present Urinary Bladder Neck Invasion: Not identified Seminal Vesicle Invasion: Present, left Lymphvascular Invasion: Not identified Perineural Invasion: Present, frequent Margins: The tumor extends to the distal urethral shade margin (apical margin) Regional Lymph Nodes: Number of lymph nodes involved by carcinoma: 7 Total number of lymph nodes examined: 13 Treatment Effect: Unknown Additional Pathologic Findings: High grade pin, benign nodule hyperplasia and chronic inflammation PATHOLOGIC STAGE: T3b N1 Mx The above summary is in compliance with [employer] (CAP) Cancer Protocols Checklist and [place] Joint Committee on Cancer (AJCC), Staging Manual, 8th Ed. MICROSCOPIC DESCRIPTION Slides are reviewed. GROSS DESCRIPTION A. Received in fixative is one container labeled with the patient's name and designated Fat over prostate. The specimen consists of an irregular fragment of yellow fatty tissue measuring 3.0 x 2.2 x 0.2cm. The specimen is bisected and totally submitted in two cassettes. B. Received in fixative is one container labeled with the patient's name and designated Left pelvic node. The specimen consists of multiple irregular fragments of yellow-fatty tissue measuring in aggregate 6.0 x 5.5 x 2.0cm. The specimen consists of multiple irregular nodules ranging in size from 1.7 to 2.2cm. The nodules are submitted in their entirety in two cassettes. C. Received in fixative is one container labeled with the patient's name and designated Right pelvic lymph nodes. The specimen consists of a three davies nodules ranging in size from 0.6 to 7.0cm. Business Services Clerk sections are submitted in two cassettes as follows: 1- two smaller lymph nodes, 2- in store marketing representative section of largest lymph node. D. Received in fixative is one container labeled with the patient's name and designated prostate. The specimen consists of a radical prostatectomy specimen consisting of prostate and bilateral seminal vesicles. The specimen weighs 52.0 gm. The prostate measures 4.3 cm transversely, 4.0 cm anterior-posteriorly and 4.0 cm craniocaudally. The specimen is differentially inked as follows: anterior - red, entire posterior portion - black, right half - blue, left half - green. The specimen is serially sectioned from apex to base at approximately 3.0 to 4.0mm sections. Serial sections reveal a humoginous firm rubbery cut surface. Business Services Clerk sections are submitted as follows: 1 - distal urethral margin, 2 - bladder shave, 3 - right and left seminal vesicles 4-5- most distal section of prostate, 6-10- prostate apex, 11-14- mid portion of prostate, 15-18- basal portion of prostate. NOTE: The specimens are submitted after additional fixation. AM: 04/10/2024 TC:0 CPT: 27827,[id number] ADDENDUM ADDENDUM ADDENDUM ADDENDUM ADDENDUM ADDENDUM ADDENDUM ADDENDUM ADDENDUM ADDENDUM ADDENDUM ADDENDUM ADDENDUM ADDENDUM ADDENDUM ADDENDUM ADDENDUM ADDENDUM 07/10/2024 13:45 ADDENDUM 07/10/2024 13:45 ADDENDUM 07/10/2024 13:45 ADDENDUM 07/10/2024 13:45 ADDENDUM 07/10/2024 13:45 [facility] RESULT SUMMARY: Abnormal TUMOR TYPE: Adenocarcinoma CLINICAL INFORMATION: Radical prostatectomy showed adenocarcinoma (Testing performed on #[id number]) HISTOPATHOLOGIC REVIEW: Tumor is present and is estimated to comprise >50% of nuclei in the sample. IMMUNOTHERAPY BIOMARKERS: TUMOR MUTATION BURDEN: Low (0.8 mutations/ MB) MICROSATELLITE INSTABILITY: MSI NEGATIVE (1.57%) Please see complete report in e-chart or EMR
[2024-04-09] MEDS: Cefazolin 2 GM in 0.9% Normal Saline (100mL Bag) 100 ML IV (07:32)
--- NOTE | 2024-04-09 07:36 | HP.PCM_ITS ---
HPI - General General Date of Admission: 04/09/24 Chief Complaint: Prostate cancer HPI Narrative DALILA JANSEN, is a 68 M who presents for extended lymph node dissection and radical prostatectomy. [facility] Medical History Wears glasses Anxiety Ambulates with cane Rheumatoid arthritis Cancer Prostate disease High cholesterol History of kidney stones History of hiatal hernia Gastric reflux Hypertension Home Medications ?Medication ?Instructions ?Recorded ?Last Taken ?Type acetaminophen 500 mg tablet 1,000 mg PO DAILY 03/26/24 Unknown History (Acetaminophen Extra Strength) hydrochlorothiazide 12.5 mg tablet 12.5 mg PO DAILY 03/26/24 04/09/24 History meloxicam 15 mg tablet 15 mg PO DAILY 03/26/24 04/09/24 History simvastatin 40 mg tablet 40 mg PO QHS 03/26/24 04/08/24 History terbinafine HCl 250 mg tablet 250 mg PO DAILY 03/26/24 04/09/24 History ciprofloxacin HCl 500 mg tablet 500 mg PO BID #20 tabs 04/09/24 Unknown Rx (Cipro) docusate sodium 100 mg capsule 100 mg PO BID #20 caps 04/09/24 Unknown Rx (Colace) lorazepam 0.5 mg tablet (Ativan) 0.5 mg PO DAILY PRN ANXIETY 04/09/24 04/09/24 History oxycodone 5 mg tablet 5 mg PO Q6H PRN pain 7 days #14 04/09/24 Unknown Rx tabs Allergy/AdvReac Type Severity Reaction Status Date / Time Penicillins Allergy Severe Anaphylaxis Verified 04/09/24 06:17 Surgical History History of melanoma excision Social History Smoking Status: Former smoker Vital Signs Vital Signs Vital Signs: 04/09/24 06:25 04/09/24 06:25 04/09/24 07:01 Temperature 97.8 F 97.8 F Temperature Source Temporal Pulse Rate 81 81 Respiratory Rate 17 17 Respiratory Pattern Normal Blood Pressure 117/77 117/77 Blood Pressure Mean 90 Blood Pressure Source Monitor Blood Pressure Position Semi-Fowlers Blood Pressure Location Left Arm Pulse Ox 95 95 Oxygen Delivery Method Room Air Weight Weight: 69 kg Body Mass Index (BMI) 25.3 Results Lab / Micro Data 03/27/24 07:29 03/27/24 07:29
--- NOTE | 2024-04-09 07:41 | DCINST_ITS ---
Discharge Instructions Diet Discharge Diet: No restrictions, Light diet - advance as tolerated and Soft diet Activity Discharge Activity: May Not Drive Dressing / Incision Cleanse incision/area with: Keep Dressing Clean & Dry Catheter: Negron to leg bag and Negron to large bag Drain: [place] Follow Up Care Please Follow Up With: Howie Elmore MD When: 2 weeks. Test Results: Test results from this visit will be discussed in further detail at your follow- up appointment, if applicable. Discharge Plan Admission Primary Reason for Your Visit: Prostate cancer Attending Provider: Howie Elmore Primary Care Provider: Cassie Roth Consulting Providers: Tonny Patel Instructions Print Language: Occitan Discharge Orders/Prescriptions Prescriptions: New ciprofloxacin HCl [Cipro] 500 mg tablet 500 mg PO BID Qty: 20 0RF docusate sodium [Colace] 100 mg capsule 100 mg PO BID Qty: 20 0RF oxycodone 5 mg tablet 5 mg PO Q6H PRN (Reason: pain) 7 Days Qty: 14 0RF Continued meloxicam 15 mg tablet 15 mg PO DAILY simvastatin 40 mg tablet 40 mg PO QHS terbinafine HCl 250 mg tablet 250 mg PO DAILY hydrochlorothiazide 12.5 mg tablet 12.5 mg PO DAILY acetaminophen [Acetaminophen Extra Strength] 500 mg tablet 1,000 mg PO DAILY lorazepam [Ativan] 0.5 mg tablet 0.5 mg PO DAILY PRN (Reason: ANXIETY ) Discontinued tamsulosin 0.4 mg capsule 0.4 mg PO DAILY Other Ambulatory Orders: 12 Lead EKG (Routine) Timeframe: [id number] Location: None Selected Ordered By: Dr. Tonny Patel Referrals / Follow Up: Howie Elmore MD [Med Staff - Active Staff] - Cassie Roth, ANTENNA RIGGER-C [Primary Care Provider] - Disposition Disposition (needs filled in before D/C Order can be placed): Home, Self Care
[2024-04-09] MEDS: Bupivacaine Mpf 0.5% 30 ML VIAL (11:33)
--- NOTE | 2024-04-09 11:35 | OP.PCM_ITS ---
Report of Operation Date of Procedure: 04/09/24 Pre-Operative Diagnosis: Prostate cancer Post-Operative Diagnosis: prostate cancer and left inguinal hernia Surgery/Procedure Performed:: Laparoscopic robotic assisted radical prostatectomy, pelvic lymph node dissection, reconstruction of bladder neck suture suspension of urethra, and repair of left inguinal hernia Description of Surgical Findings:: Patient was taken back to the operating room at this with induction of anesthesia he was placed supine on the table he was made sure that he was padded properly and the table and secured we did a tilt test the patient was then shaved prepped and draped in usual sterile fashion it a small umbilical hernia went above the billable hernia with a Veress needle insufflated the the abdomen cavity with CO2 gas I then placed the right arm trocar left arm trocar second left arm trocar air seal port and suction port for the assistant professor of biochemistry. The robot was then docked patient was put in Trendelenburg and then I proceeded with the dissection I first mobilized the sigmoid colon off the lateral wall this allowed retraction of the colon from the pelvis I then went below the bladder identified the vas deferens and the seminal vesicles went underneath the vas deferens and seminal vesicles to dissect prostate off the rectum he had a high-grade cancer so I did not go into Denonvilliers' fascia went inferior to that evaluate Denonvilliers' fascia right above the rectal fat use a 30 degree lens and then turned it up close able to dissect underneath the prostate all the way to the apex I then dissected laterally I then took some of the pedicle on the left side and the right side and then pulled back and dissected out the left vas deferens and the right vas deferens and then dissected out the left seminal vesicle and the right seminal vesicle at this point it I had done all the posterior dissection I needed to the right and then put the pelvis we then switch back 30 degrees down we dropped the bladder created the space of Retzius and then proc eeded with our lymph node dissection with the bladder on traction I went to the left lymph nodes first and identified the external iliac vein internal iliac vein and artery and then all the lymph node packet was then peeled off the vein and artery all the way inferiorly until I got to the bifurcation of the iliac and then identified the obturator nerve and the radiotelegraph operator servicer vessel below this I then dissected the lymph node tissue off the left side off fullest structures and off the lateral lateral pelvic sidewall this was cleaned off completely and extensive mount of lymph nodes were then sent off as a specimen. I then went to the right side and on the right side the lymph nodes that looked more firm and hard more suspicious for cancer I again I dissect the lymph nodes off the lateral pelvic sidewall I got all the lymph nodes and 1 packet and I went up to the node of [place] this was also involved and then I went above this and then dissected lymph node packet off the right side off the iliac external iliac vein and vessel and off to off the internal iliac vein and vessel into also dissected completely off the obturator nerve and went as inferior as possible then was able to get it below the entire packet it was like 1 large packet old group together definitely look very suspicious to to be involved with cancer and then this was then taken and put in Endo Catch bag to be removed later. I we then turned our attention to the prostate dissected the prostate laterally on each side I then identified the dorsal vein the dorsal vein was suture-ligated from prostate then divided the junction between the bladder and prostate and then started dissecting the bladder off the prostate intentionally I dissected so that we are far away from the prostate since this was high-grade cancer and then entered into the bladder and then dissected the bladder off the prostate inferiorly until I got into the vas deferens and some vesicles which were very dissected out then the prostate the bladder was I then went to the right side was able to use a vessel sealer and I follow the neurovascular bundle on the right side was able to spare the neurovascular bundles we did nerve sparing on the right side using the vessel sealer to peel off the neurovascular bundle on the right side all the way to the apex same thing on the left side was able to identify neurovascular bundle on the left side and spread all the way up to the apex but I did not do aggressive nerve sparing since this got hide aggressive high-grade cancer but it was just nice dissection is able to identify the nerve bundles of both sides and in the spare these all the way to the apex I then transected through the dorsal vein complex dissected down to the urethra and then circumferentially dissected the urethra very carefully there was some dense adherent tissue between the posterior prostate and the rectum had to be very careful and dissecting this off and then finally was able to transected the urethra and the prostate came free. I then reconstructed the bladder neck was using a 3-0 Vicryl to reapproximate we do the bladder neck and tennis racquet fashion so that there was a small hole at the top of the bladder neck approximately the same size of the urethra I then inverted the mucosa using 4-0 Vicryl's to invert the mucosa at the bladder neck reconstruction and then after this was done we removed fourth arm and then I did the anastomosis between the reconstructed bladder neck and the urethra this was done with 3 oh STRATAFIX stitches in a continuous fashion starting posteriorly to anteriorly and a nice anastomosis was then created with a perfect watertight anastomosis a new 18 [place] catheter [place] tip was put into the bladder we irrigated there was no leakage from the new anastomosis. And then at this point we pulled out of the pelvis I then turned my attention to the left inguinal hernia at the beginning of the case there was a left inguinal hernia that was a indirect inguinal hernia through the left inguinal canal that was identified I pulled out the peritoneal sac from the inguinal hernia I then reduced the hernia and after reducing the hernia and pulling out the peritoneal sac then we put a mesh plug inside the hernia and then we closed over the mesh plug with 3-0 Vicryl with a suture to complete the repair of the inguinal hernia. This event was incidental finding and I proceeded with repair of the inguinal hernias to avoid having the patient have another surgery later on. After this was completed then we extracted the prostate and the lymph node tissue through the umbilicus that was put in the Endo Catch bag robot was undocked we closed the umbilicus extraction site and then we closed all the subcuticular stitches patient anesthetic reversed he was taken back to the PACU in good condition and I went and spoke to the family. Surgeon: Howie Elmore Type of Anesthesia: General Drains: willis 18 fr Estimated Blood Loss (mL): 100 Admit VTE Documentation VTE Present on Admission: No VTE Mechan Device Prophylaxis: SCD's VTE Pharm Prophylaxis ordered?: No
--- NOTE | 2024-04-09 11:52 | PCM.POST.ANE ---
Anesthesia: Postop Eval I Current Vital Signs Temperature: 97.7 F Pulse Rate: 84 Blood Pressure: 138/78 Respiratory Rate: 20 Pulse Ox: 98 Oxygen Delivery Method: Room Air Assessment Airway patent: Yes Spontaneous unlabored respirations: Yes Mental status: Awake and Calm nausea: No Vomiting: No Anesthesia Complication: No Fluid Hydration Crystalloid volume administer (ml): 1,300 Total IV fluid infused: 1,300 Progress Note Anesthesia document: Postop Eval 1 completed: Yes
--- NOTE | 2024-04-09 12:08 | POSTOPAN2_ITS ---
Anesthesia Postop Eval I Sum Postop Eval Completion status Anesthesia document: Postop Eval 1 completed: Yes Anesthesia Postop Eval I Summary Anesthesia Postop Eval I Summary: Anesthesia Postop Eval I: Assessment Summary Airway patent Yes 04/09/24 11:53 [email or web address] Spontaneous unlabored Yes 04/09/24 11:53 SEISMOGRAPH [email or web address] respirations Mental status Awake,Calm 04/09/24 11:53 SEISMOGRAPH [email or web address] nausea No 04/09/24 11:53 SEISMOGRAPH [email or web address] Vomiting No 04/09/24 11:53 SEISMOGRAPH [email or web address] Anesthesia Postop Eval I: Fluid Summary Crystalloid volume administer 1,300 04/09/24 11:53 [email or web address] [email or web address] (ml) Colloids volume administered ( ml) Blood Product volume administered (ml) Total IV fluid infused 1,300 04/09/24 11:53 SEISMOGRAPH [email or web address] Anesthesia Postop Eval I: Summary Notes Anesthesia Complication No 04/09/24 11:53 [email or web address] [email or web address] Anesthesia Complication Comment: Post-operative progress note Anesthesia: Postop Eval II Evaluation Mental status: Awake Pain Level: 0 nausea: No Vomiting: No Complications Anesthesia Complication: No
--- NOTE | 2024-04-09 12:08 | PCM.POSTANE2 ---
Anesthesia Postop Eval I Sum Postop Eval Completion status Anesthesia document: Postop Eval 1 completed: Yes Anesthesia Postop Eval I Summary Anesthesia Postop Eval I Summary: Anesthesia Postop Eval I: Assessment Summary Airway patent Yes 04/09/24 11:53 VEHICLE CHECK IN [email or web address].[email or web address] Spontaneous unlabored Yes 04/09/24 11:53 VEHICLE CHECK IN CLERK.SCHR respirations Mental status Awake,Calm 04/09/24 11:53 VEHICLE CHECK IN CLERK.SCHR nausea No 04/09/24 11:53 VEHICLE CHECK IN CLERK.SCHR Vomiting No 04/09/24 11:53 VEHICLE CHECK IN CLERK.SCHR Anesthesia Postop Eval I: Fluid Summary Crystalloid volume administer 1,300 04/09/24 11:53 VEHICLE CHECK IN CLERK.SCHR (ml) Colloids volume administered ( ml) Blood Product volume administered (ml) Total IV fluid infused 1,300 04/09/24 11:53 VEHICLE CHECK IN CLERK.SCHR Anesthesia Postop Eval I: Summary Notes Anesthesia Complication No 04/09/24 11:53 VEHICLE CHECK IN CLERK.[facility] Anesthesia Complication Comment: Post-operative progress note Anesthesia: Postop Eval II Evaluation Mental status: Awake Pain Level: 0 nausea: No Vomiting: No Complications Anesthesia Complication: No
[2024-04-09] MEDS: Ketorolac 30 MG/ML Syringe IV (12:27)
--- NOTE | 2024-04-09 14:36 | EKG12_ITS ---
Test Reason : CHEST HEAVINESS Blood Pressure : / mmHG Vent. Rate : 077 BPM Atrial Rate : 077 BPM P-R Int : 158 ms QRS Dur : 130 ms QT Int : 434 ms P-R-T Axes : 057 -40 012 degrees QTc Int : 491 ms Normal sinus rhythm Left axis deviation Right bundle branch block Abnormal ECG When compared with ECG of 27-MAR-2024 07:19, No significant change was found Confirmed by SARAY DAY, SEAN ([id number]), video news editor ARTEM SANFORD ([id number]) on 04/15/2024 9:31:49 AM Referred By: Howie Elmore Confirmed By:SEAN SO MD
--- NOTE | 2024-04-09 14:37 | NURSING ---
pt c/o chest heaviness known hiatal hernia, skin w&d, heart rate similar, breathing, even and non labored lungs clear bilaterally
[2024-04-09] MEDS: Famotidine 20 MG Tablet PO ×2 (15:26→21:04)
[2024-04-09] MEDS: Mag Hydrox/Al Hydrox/Simeth 30 ML UDC PO (15:26)
[2024-04-09] MEDS: Lactated Ringers 1,000 ML 125 ML IV ×2 (15:27→22:23)
[2024-04-09 15:49] LABS: Troponin-I HS 4 pg/mL (3.0-78.0)
[2024-04-09] MEDS: Ketorolac 15 MG/ML Vial IV (17:34)
[2024-04-09 19:36] LABS: Troponin-I HS 3 pg/mL (3.0-78.0)
[2024-04-09] MEDS: Acetaminophen 325 MG Tablet PO (20:58)
[2024-04-09] MEDS: Docusate Sodium 100 MG Capsule 200 MG PO (20:58)
[2024-04-09] MEDS: Atorvastatin Calcium 20 MG Tablet PO (20:59)
[2024-04-09 21:02] LABS: Troponin-I HS 4 pg/mL (3.0-78.0)
[2024-04-09] MEDS: Ciprofloxacin 400 MG/200 ML BAG 200 MG IV (21:08)
[2024-04-09] MEDS: oxyCODONE 5 MG Tablet PO (22:26)
[2024-04-10] MEDS: Ketorolac 15 MG/ML Vial IV ×2 (00:11→05:10)
[2024-04-10 00:26] VITALS: BP 152/88; PULSE 78; RESP 18; TEMP 36.8; O2SAT 98
[2024-04-10] MEDS: Lactated Ringers 1,000 ML 125 ML IV (05:08)
[2024-04-10 05:12] VITALS: BP 154/85; PULSE 71; RESP 18; TEMP 36.5; O2SAT 98
--- NOTE | 2024-04-10 07:31 | PCM.PN.GU ---
Subjective Subjective 68-year-old male status post robotic radical prostatectomy for prostate cancer is doing well plan to send him home today with a Negron catheter Objective Data Objective Data Vital Signs: Vital Signs Temp Pulse Resp BP Pulse Ox O2 Del Method 97.7 F L 71 18 154/85 H 98 Room Air 04/10/24 05:12 04/10/24 05:12 04/10/24 05:12 04/10/24 05:12 04/10/24 05:12 04/10/24 05:12 Oxygen Delivery Method Room Air Weight: 69 kg Body Mass Index (BMI) 25.3 Intake & Output: Intake and Output for Last 24 Hours 04/08/24 04/09/24 04/10/24 23:59 23:59 23:59 Intake Total 2411.17 / 2411.17 1243.75 / 1243.75 Output Total 1080 / 1080 350 / 350 Balance 1331.17 / 1331.17 893.75 / 893.75 Lab / Micro Data 03/27/24 07:29 03/27/24 07:29 Labs: Laboratory Results - last 24 hr 04/09/24 15:20: Troponin I High Sens 4 04/09/24 17:45: Troponin I High Sens 3 04/09/24 20:36: Troponin I High Sens 4
[2024-04-10 08:09] VITALS: O2SAT 98
[2024-04-10 08:20] VITALS: BP 158/94; PULSE 74; RESP 18; TEMP 36.9; O2SAT 96
[2024-04-10] MEDS: Famotidine 20 MG Tablet PO (08:28)
[2024-04-10] MEDS: terbinafine HCL 250 MG TABLET PO (08:28)
[2024-04-10] MEDS: Acetaminophen 325 MG Tablet PO (08:28)
[2024-04-10] MEDS: hydroCHLOROthiazide 12.5mg 12.5 MG PO (08:28)
[2024-04-10] MEDS: Ciprofloxacin 400 MG/200 ML BAG 200 MG IV (08:29)
[2024-04-10] MEDS: Docusate Sodium 100 MG Capsule 200 MG PO (08:29)
--- NOTE | 2024-04-10 09:38 | PHA.DC_ITS ---
Pharmacy [facility] Pharm[facility] Service has performed discharge medication reconciliation and counseling for this patient. The patient's discharge medication list was reviewed for discrepancies and discrepancies were resolved. The patient was counseled on the following discharge medications and changes in medications for homegoing were reviewed. 1. CIPRO 2. OXYCODONE 3. DOCUSATE The Reason for Use, instructions for use, and potential side effects were reviewed for all new medications. The patient's questions regarding all of their medications were answered. The patient was able to verbally demonstrate an understanding of their discharge medications. The patient was counselled by Elizabeth nolasco PharmD Candidate Medications at Discharge Home Medications acetaminophen 500 mg tablet (Acetaminophen Extra Strength) 1,000 mg PO DAILY 03/26/24 hydrochlorothiazide 12.5 mg tablet 12.5 mg PO DAILY 03/26/24 meloxicam 15 mg tablet 15 mg PO DAILY 03/26/24 simvastatin 40 mg tablet 40 mg PO QHS 03/26/24 terbinafine HCl 250 mg tablet 250 mg PO DAILY 03/26/24 ciprofloxacin HCl 500 mg tablet (Cipro) 500 mg PO BID #20 tabs 04/09/24 docusate sodium 100 mg capsule (Colace) 100 mg PO BID #20 caps 04/09/24 lorazepam 0.5 mg tablet (Ativan) 0.5 mg PO DAILY PRN ANXIETY 04/09/24 oxycodone 5 mg tablet 5 mg PO Q6H PRN pain 7 days #14 tabs 04/09/24
--- NOTE | 2024-04-10 10:12 | CASEMGMT ---
Addendum entered by Galilea Sadler 04/10/24 10:51: DOUG RODRIGUEZ Discussed DC with Willis Catheter. Pt stated RN discussed care and Pt is comfortable with going home with willis. Original Note: DOUG RODRIGUEZ Assessment: Face to Face with pt for initial transition planning/care coordination assessment. DOUG RODRIGUEZ introduced self and role at [facility], pt voices understanding and consents to assessment. Pt lying in bed in no distress. came in at the end of assessment. Pt is A&O x4 and answers all questions appropriately at this time. Care providers, pharmacy, and demographics verified/updated. Admitting Dx: Laproscopic Radical Robotic Prostatectomy PCP: [facility] Specialists: Denies Preferred Pharmacy: [facility] Insurance: [employer] Prescription Benefit: no LNOK: [place] - Living Arrangements: Pt lives with and son in a ranch home with 3 steps to enter. Pt states I with ADLs and IADLs. Transportation: Pt drives self and denies concerns with transportation. able to transport home. DME: Cane, walker, walk in shower, grab bars HHC/SNF: Denies Hx of Pt states no concerns with going home at time of dc. Pt states no further concerns/needs. CM to follow. Advised pt to ask CM if any further question/concerns/needs arise, voices understanding. Pt Goal: Home Plan: Home no needs. Vickie CAMACHO CM
== END 2024-04-10 11:16 | disposition home or self-care (01) | DRG 707 ==
LOC: SDC 11:57 → MS3 11:57
PROVIDERS: Anesthesiology; Admitting Provider Urology; PCP Nurse Practitioner Family; Referring Provider Urology; Visit Provider Urology
PROC: 0VT04ZZ Resection of Prostate, Percutaneous Endoscopic Approach (ICD-10-PCS; CPT 55866; principal; 2024-04-09 07:10)
DX: C61 Malignant neoplasm of prostate (principal); C77.5 Secondary and unspecified malignant neoplasm of intrapelvic lymph nodes; I10 Essential (primary) hypertension; E78.00 Pure hypercholesterolemia, unspecified; K40.90 Unilateral inguinal hernia, without obstruction or gangrene, not specified as recurrent; Z87.891 Personal history of nicotine dependence
CPT/HCPCS: 36415; 80048; 84484; 85027; 86850; 86900; 86901; 88305; 88309; 88341; 88342; 93005; J7120; C1781; J0744; J2405

== ENCOUNTER → 2024-06-02 | Outpatient (CLI) | payer MEDICARE, SELFPAY ==
[2024-06-02 08:59] LABS: PSA,Total- Diagnostic 7.61 ng/mL (0.0-4.0)
== END | disposition home or self-care (01) ==
LOC: LAB 08:11
PROVIDERS: PCP Nurse Practitioner Family; Referring Provider Urology; Visit Provider Urology
DX: C61 Malignant neoplasm of prostate (principal)
CPT/HCPCS: 36415; 84153

== ENCOUNTER → 2024-06-17 | Outpatient (CLI) | payer MEDICARE, SELFPAY ==
--- NOTE | 2024-06-17 10:30 | PET_ITS ---
EXAMINATION: PYLARIFY F-18 ? INDICATIONS: 68-year-old male with a history of primary prostate carcinoma, presenting for restaging examination. ? COMPARISON EXAMINATION: Pylarify PET CT study dated 02/26/2024. ? INDEX LESION SIZE PROMISE SCORE SUV INTERPRETATION PERSISTENT Abdominal retroperitoneum, right hemipelvis and inguinal region 9.3 mm compared to 13.5 mm 3, unchanged 17.93 compared to 21.3 Fulfills quantitative criteria for viable neoplasm, minimal interim metabolic change, relative quantitative metabolic stability PREVIOUS? Prostate gland ? ? ? Demonstrates metabolic resolution on the current examination commensurate with? previous surgical intervention ? TECHNIQUE: Following the intravenous administration of 8.59 mCi of Pylarify F-18 via the left antecubital fossa, multiplanar image acquisitions of the head, neck, chest, abdomen and pelvis to the level of the midthigh, obtained at 73 minutes post tracer distribution reveal: ? The examination was interpreted using the EANM (Shalini et al., Journal of Nuclear Medicine Molecular Imaging 44:1622, 2017) and PROMISE (Mauricio et al., Journal of Nuclear Medicine 59:469, 2018) interpretive criteria. ? HEIGHT:?? 65 inches WEIGHT:?? 150 pounds ? PSMA expression score PROMISE criteria: High (3): SUV > parotid-salivary gland, intermediate (2): SUV > liver, low (1): > blood pool, < liver, (0): < blood pool. ? SUV reference values: Parotid glands 29.3/24.33. Normal liver parenchyma 10.9/8.9. Blood pool 1.6/1.6. ? FINDINGS: ? HEAD/NECK:? Symmetric physiologic tracer uptake is noted in the bilateral parotid and submandibular glands.? Physiologic uptake is noted in the nasal pharynx.? ? There is no evidence of abnormal increased tracer uptake within the context of the cranial vault. ? CHEST:? There is no quantitative scintigraphic evidence of abnormal increased radiopharmaceutical concentration within the context of the bilateral hemithorax pulmonary parenchyma, right and left hemithorax at the pleural interface, mediastinal structures, and left-right thoracic perihilum. ? CT of the chest demonstrates the following anatomic characteristics: On review of the CT of the chest, there is no definitive interval change compared to the study dated 02/26/2024. ? ABDOMEN/PELVIS:? Facilitated radiopharmaceutical concentration remains apparent in the abdominal retroperitoneum, right hemipelvis, and inguinal regions.? The calculated standard uptake value is 17.93 compared to 21.3. The PROMISE Score remains 3, unchanged.? The largest corresponding soft tissue density demonstrates a maximal axial diameter of 9.3 mm compared to 13.5 mm. Uniform, homogeneous radiopharmaceutical concentration is defined in the hepatic and splenic parenchyma, visualization of the bilateral renal units, urinary bladder, and visualized intestinal tract. ? CT of the abdomen and pelvis is remarkable for the following: The prior defined prostate gland hypermetabolic focus is not apparent on the current examination with current absence of the prostate gland commensurate with interim prostatectomy. ? SKELETAL:? There is no evidence of quantitatively significant enhanced radiopharmaceutical metabolism on meticulous inspection of the appendicular and axial skeletal structures. ? Degenerative changes defined in the thoracic and lumbar spine demonstrate no evidence of increased glucose metabolism. There are no sclerotic, mixed sclerotic-lytic, or primarily lytic changes defined in the axial skeletal structures with evidence of increased FDG uptake. ? PET/PET/CT Tumor Base -Thigh Subs IMPRESSION: 1. ABNORMAL EXAMINATION INDICATIVE OF MALIGNANT-VIABLE NEOPLASM. 2.? Increased tracer uptake redefined in the abdominal retroperitoneum, right hemipelvis, right inguinal regions fulfills quantitative criteria for viable neoplasm. 3.? There is interim resolution of the prior defined prostate gland hypermetabolic focus commensurate with apparent interim prostatectomy. 4.? Overall, compared to the previous F18 Pylarify PET CT study dated 02/26/2024, there is continued demonstration of viable neoplasm within the abdominal retroperitoneum and pelvis, right inguinal regions demonstrating overall quantitative metabolic stability.? There is interim resolution of the prior defined prostate gland hypermetabolic focus commensurate with interim prostatectomy. ? Electronic Signature Zach oMn D.O. Accurate Quantification of SUVs and standardized PROMISE scores for this report are calculated using the exclusive [employer], ([place] Patent No. [id number] [phone] [id number] patent [phone] ). Standardization and correction of the FDG SUV metric exclusively available with [employer] intellectual property, allow for vendor non-specific objective quantitative sequential FDG PET-CT comparison and otherwise unobtainable optimization of the sensitivity and specificity of the examination. [email or web address] Electronically Signed: Zach Mon DO at 23:14 EDT ,
== END | disposition home or self-care (01) ==
PROVIDERS: PCP Nurse Practitioner Family; Referring Provider Urology; Visit Provider Urology
DX: C61 Malignant neoplasm of prostate (principal); R97.21 Rising PSA following treatment for malignant neoplasm of prostate
CPT/HCPCS: 78815; A9595

== ENCOUNTER → 2024-06-24 | Outpatient (CLI) | payer MEDICARE, SELFPAY ==
--- NOTE | 2024-06-24 10:24 | VDLE_ITS ---
Reason For Study: BLE Swelling RIGHT LEFT GSV is normal. GSV is normal. CFV is compressible, spontaneous, phasic, CFV is compressible, spontaneous, phasic, competent and demonstrates normal competent, and demonstrates normal augmentation. augmentation. FV is compressible, spontaneous, phasic, FV is compressible, spontaneous, phasic, competent and demonstrates normal competent and demonstrates normal augmentation. augmentation. POP V is compressible, spontaneous, phasic, POP V is compressible, spontaneous, phasic, competent and demonstrates normal competent and demonstrates normal augmentation. augmentation. T/P Trunk is compressible. T/P Trunk is compressible. PTV is compressible. PTV is compressible. RT PerV is compressible. LT PerV is compressible. Procedure This is a venous duplex using B-mode, color flow and spectral Doppler. Exam performed in department. The exam was diagnostic. A preliminary report was called and/or faxed to Dr. Elmore office. VL/Venous Duplex US - Brett Extrem Interpretation Summary Deep veins of the lower extremities are bilaterally patent and compressible seg mentally. There is no evidence of deep vein thrombosis on either side. Valvular competence appears in tact within the proximal deep venous systems bilaterally. The great saphenous veins appear bila terally patent and compressible segmentally. Ordering Physician: Howie Elmore Referring Physician: Cassie Roth Performed By: Kamlesh Price, RVT
== END | disposition home or self-care (01) ==
LOC: CVS 10:16
PROVIDERS: PCP Nurse Practitioner Family; Referring Provider Urology; Visit Provider Urology
DX: R22.43 Localized swelling, mass and lump, lower limb, bilateral (principal)
CPT/HCPCS: 93970

== ENCOUNTER 2024-07-09 10:45 | Day surgery (SDC) | payer MEDICARE, SELFPAY ==
--- NOTE | 2024-07-09 11:02 | PCM.HP.BLA ---
History and Physical Date of Admission: 07/09/24 Date of Service: 07/03/24 MR#: [id number] Acct: [id number] Name: DALILA JANSEN Rep #: [id number] : 1955 Provider: Dr. Jerald Currie MD Age/Sex: 68/M Location: [facility] Status: Signed Intake Vital Signs 07/02/2409:47 07/03/2413:38 Height 5 ft 5 in 5 ft 5 in Weight: 153 lb 2 oz BMI 25.4 BP 144/74 H Blood Pressure Location Rt brachial Position Sitting Respiration 18 Pulse 69 Pulse Source Monitor Temp 97.3 F L Temp Source Temporal Pulse Oximetry (%) 98 Oxygen Delivery Method room air Intake Visit Reasons: PORT PLACEMENT Chief Complaint: port placement Accompanied by: Is patient in pain?: No Allergies Penicillins Allergy (Severe, Verified 07/03/24 13:39) Anaphylaxis Medications ?Medication ?Instructions ?Recorded ?Confirmed ?Type hydrochlorothiazide 12.5 mg tablet 12.5 mg PO DAILY 03/26/24 06/25/24 History meloxicam 15 mg tablet 15 mg PO DAILY 03/26/24 06/25/24 History simvastatin 40 mg tablet 40 mg PO QHS 03/26/24 06/25/24 History Have you fallen in the past year?: No PFSH Medical History 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 Regional lymph node metastasis present Wears glasses Anxiety Ambulates with cane Rheumatoid arthritis Cancer Prostate disease High cholesterol History of kidney stones History of hiatal hernia Gastric reflux Hypertension Surgical History H/O vasectomy H/O prostatectomy History of melanoma excision Family History Mother Cancer liverGrandfather CancerOther Heart disease Hypertension Social History Smoking Status: Former smoker Tobacco: How many years used: 1 alcohol intake: current alcohol intake frequency: a few times a month substance use type: marijuana HPI HPI HPI: The patient is a 68-year-old male who is being seen today to discuss port placement. He was recently diagnosed and treated surgically for prostate cancer. Chemotherapy is also recommended as far as his treatment plan. For this reason he presents today to discuss port placement. He states that it is healing from his prostatectomy well. He has no issues or problems otherwise. He denies any trauma to the head or neck regions. No previous hardware placed such as pacemaker etc. ROS General General: Yes fatigue; No weight change, appetite, colon cancer, breast cancer or weakness HEENT HEENT: Yes difficulty swallowing; No eye injury, eye surgery, swollen glands or hoarseness Additional Details: d/t hiatal hernia Endo Endocrine: No thyroid disease, diabetes mellitus, thyroid cancer, Hair loss, heat intolerance or cold intolerance Skin Skin: No rash or changing moles Musc Musculoskeletal: Yes arthritis and rheumatoid arthritis; No back problems, gout or joint pain Cardio Cardiovascular: Yes high blood pressure; No murmur, pacemaker, heart disease, atrial fibrillation, heart attack, heart stent, palpitations, shortness of breat with exertion or chest pain Psych Psychiatric: Yes anxiety; No depression or hearing voices Resp Respiratory: No shortness of breath, No sleep apnea, No cough, No COPD, No asthma, No emphysema and No wheezing Gastro Gastrointestinal: No abdominal pain, No nausea or vomiting, No diarrhea, No constipation, No blood in stool, No acid reflux, Yes hemorrhoids, No ulcers, No gallbladder problem and No black,tarry stools Loki Hematologic: No blood thinners, No blood disorders, No bleeding, No anemia and No blood clots Neuro Neurologic: No numbness, No tingling and No weakness Exam Const General: healthy appearing and no acute distress Orientation: alert and oriented [facility]: normal to inspection, normocephalic and atraumatic Eyes General: appearance normal, both eyes and all related structures Neck Neck: normal visual inspection Assessment and Plan Assessment and Plan (1) 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 He underwent prostatectomy and is now in need of a Mediport to initiate chemotherapy. I offered him Mediport placement surgery. We discussed the details of the planned subclavian Mediport. I anticipate placement on the the patient's left side as he is right-handed. We discussed the details of the planned procedure including risk benefits and alternatives and he wishes to proceed. We did discuss possible complications such as bleeding, infection, anesthesia risk, and possible pneumothorax. He is agreeable to this plan and will be scheduled in a timely manner. 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
--- NOTE | 2024-07-09 11:15 | PCM.PRE.AN2 ---
ASA Classification* ASA Classification ASA Classification: 2 Assessment & Plan Anesthesia* Anesthesia Assessment Anesthesia Assessment: Discussed sedation and/or anesthesia options, risks, benefits, and alternatives with patient/parents/legal guardian/POA. Questions invited. The patient/parents/legal guardian/POA seems to understand and agrees to proceed with anesthesia plan. Reviewed the physical assessment, medical history, allergy history and patient home medications list prior to surgery/procedure/anesthetic and documented any changes. Performed airway and anesthesia risk assessments. Anesthesia Type Anesthesia Type: MAC Anesthesia Focused Assessment* Airway Assessment Mouth opens: >3 cm Mallampati Score: II Focused Labs Anesthesia Preop lab: CBC WBC 7.6 K/mm3 (4.4-11.0) 07/02/24 10:45 RBC 4.32 M/mm3 (4.6-6.2) L 07/02/24 10:45 Hgb 13.8 g/dL (13.0-16.5) 07/02/24 10:45 Hct 41.6 % (40-54) 07/02/24 10:45 Plt Count 324 K/mm3 (150-450) 07/02/24 10:45 CHEMISTRY Potassium 4.1 mmol/L (3.5-5.1) 07/02/24 10:45 Sodium 140 mmol/L (136-145) 07/02/24 10:45 BUN 15 mg/dL (7-18) 07/02/24 10:45 Creatinine 0.86 mg/dL (0.70-1.30) 07/02/24 10:45 Glucose 99 mg/dL (74-106) 07/02/24 10:45 COAG PT 13.5 SECONDS (11.7-14.9) 11/21/22 15:08 Pre-Assessment Diagnosis/Proposed Procedure Planned Operative Procedure(s): LEFT SUBCLAVIAN MED PORT PLACEMENT Anesthesia History 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 When Was Last Pacemaker Check QUESTION #4 FULL TEXT: You/Your Family Experience fever (hyperthermia) with Anesthesia Last Oral Intake Last Oral intake: Last Oral Intake NPO since Meds taken in AM with sips of water? Meds patient instructed to take am of surgery PONV PONV - corporate lawyer: PONV - corporate lawyer Female No 07/07/24 10:45 HX of Motion Sickness Yes 07/07/24 10:45 HX of N/V After Surgery Yes 07/07/24 10:45 Non-Smoker Yes 07/07/24 10:45 Duration of Surgery greater Yes 07/07/24 10:45 than 60 minutes Number of Risk Factors 4 07/07/24 10:45 PONV Score Severe Risk 07/07/24 10:45 Height & Weight Height & Weight: Anesthesia: Height & Weight Height 5 ft 5 in 07/07/24 14:50 Respiratory Assessment Respiratory Assessment - corporate lawyer: Respiratory Tract Infection Hx - corporate lawyer Hx Respiratory Tract Infection No 07/07/24 10:45 STOP Sleep Apnea STOP Sleep Apnea - corporate lawyer: STOP Sleep Apnea - corporate lawyer Hx Hypertension Yes: LITTLE ON HIGH SIDE- 07/07/24 10:45 SEEING PCP FOR BP Hx Sleep Apnea No 07/07/24 10:45 CPAP BIPAP Do you snore loudly (louder No 07/07/24 10:45 than talking or can be heard Do you often feel tired/ No 07/07/24 10:45 fatigued/ sleepy during daytime? Has anyone observed you stop No 07/07/24 10:45 breathing during sleep? STOP Results Negative 07/07/24 10:45 QUESTION #5 FULL TEXT : Do you snore loudly (louder than talking or can be heard through closed doors)? 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 Specify any problems Hx of Preganancy in last 3 N/A 07/07/24 10:45 Months Nurse Filling Out Transfusion VCHRISTIN 07/07/24 10:45 & Questions: Date: 07/07/24 07/07/24 10:45 Time: 10:47 07/07/24 10:45 Patient unable to answer at this time (ie. confused, unrespo /Reproduction History /Reproductive History - corporate lawyer: /Reproductive Hx- corporate lawyer Hx Now Gestational Age (in weeks): EDC: Hx Hx Para Hx Section SAB No 07/07/24 10:45 Active Medications Active Medications: Current Medications Generic Name Dose Route Start Last Admin Trade Name Freq PRN Reason Stop Dose Admin Lactated Ringer's 1,000 mls @ 15 mls/hr 07/09/24 11:15 IV .Q48H [facility] Medical History (Updated 07/07/24 @ 17:47 by Taina Rodriguez NP, 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 Regional lymph node metastasis present Wears glasses Anxiety Ambulates with cane Rheumatoid arthritis Cancer Prostate disease High cholesterol History of kidney stones History of hiatal hernia Gastric reflux Hypertension Home Medications ?Medication ?Instructions ?Recorded ?Last Taken ?Type hydrochlorothiazide 12.5 mg tablet 12.5 mg PO DAILY 03/26/24 04/09/24 History meloxicam 15 mg tablet 15 mg PO DAILY 03/26/24 04/09/24 History simvastatin 40 mg tablet 40 mg PO QHS 03/26/24 04/08/24 History dexamethasone 4 mg tablet 8 mg (2 x 4 mg) PO .COMPLEX #12 07/07/24 Unknown Rx tabs lidocaine-prilocaine 2.5 %-2.5 % 1 applic topical ONCE PRN port 07/07/24 Unknown Rx topical cream access 30 days #30 grams losartan 25 mg tablet 25 mg PO QDAY 07/07/24 Unknown History mirtazapine 15 mg tablet 15 mg PO QHS #30 tabs 07/07/24 Unknown Rx ondansetron 8 mg disintegrating 8 mg PO Q8H PRN nausea and 07/07/24 Unknown Rx tablet vomiting #30 tabs prochlorperazine maleate 10 mg 10 mg PO Q6H PRN nausea and 07/07/24 Unknown Rx tablet vomiting #30 tabs Allergy/AdvReac Type Severity Reaction Status Date / Time Penicillins Allergy Severe Anaphylaxis Verified 07/07/24 14:54 lisinopril Allergy Intermediate Other Verified 07/07/24 14:54 Family History Mother Cancer liver Grandfather Cancer Other Heart disease Hypertension Surgical History H/O vasectomy H/O prostatectomy History of melanoma excision Social History Smoking Status: Former smoker Tobacco: How many years used: 1 alcohol intake: current alcohol intake frequency: a few times a month substance use type: marijuana Review of Systems (Anesthesia) ROS Narrative System reviewed and no additional complaints, except as documented.
[2024-07-09 11:48] VITALS: BP 140/93; PULSE 68; RESP 16; TEMP 36.4; O2SAT 100
[2024-07-09] MEDS: Lactated Ringers 1,000 ML 15 ML IV (12:01)
[2024-07-09] MEDS: Clindamycin 900 MG/50 ML BAG 75 MG IV (13:22)
[2024-07-09] MEDS: Lidocaine 1% /Epi 1:100 (50ml) 50 ML VIAL (14:02)
[2024-07-09] MEDS: Bupivacaine Mpf 0.5% 30 ML VIAL (14:05)
--- NOTE | 2024-07-09 14:06 | RAD_ITS ---
STUDY: X-RAY CHEST REASON FOR EXAM: Male, 68 years old. Port -- PORTABLE PACU TECHNIQUE: Single AP portable view of the chest. COMPARISON: None. FINDINGS: A right-sided Port-A-Cath has been placed with tip at the junction of the superior vena cava and right atrium. EKG electrodes are seen. The lungs are clear and expanded. There is no demonstrated pleural abnormality. Normal size heart. Normal mediastinum and ana. Normal visualized pulmonary arteries. There is atherosclerotic calcification of the aortic arch with tortuosity. There are diffuse degenerative changes of the visualized thoracic spine. Normal visualized ribs, clavicles, and shoulders. There is no demonstrated abnormality of the visualized soft tissue structures of the upper abdomen. RAD/CXR for Line Placement IMPRESSION: The tip of the right Port-A-Cath is at the junction of the superior vena cava and right atrium. Electronically Signed: Bakari Dobbins MD at 14:35 EDT ,
--- NOTE | 2024-07-09 14:06 | PCM.OPRPT ---
Report of Operation Date of Procedure: 07/09/24 Pre-Operative Diagnosis: Z45.2, metastatic prostate cancer Post-Operative Diagnosis: Same Surgery/Procedure Performed:: 1 placement of right IJ Port-A-Cath 2 use of ultrasound 3 use of fluoroscopy Surgeon: Laney Valentine Type of Anesthesia: Local MAC Anesthesiologist: Abiodun Mendez Special Medications: Clindamycin 900 mg IV x 1 Estimated Blood Loss (mL): < 10 cc Description of Procedure: After informed consent was given, the patient was brought to the operating room and placed in the supine position. Appropriate time out protocol was followed. Patient was then given IV conscious sedation for anesthesia. The patient's right upper chest and neck were then prepped with a surgical skin preparation and sterile surgical drapes were placed. After proper landmarks were ascertained, the skin at the upper right chest area was then infiltrated with 1:1 mixture of 1% lidocaine with epinephrine and 0.5% marcaine. A needle trocar was then inserted into the right internal jugular vein with ultrasound guidance-multiple vessels were viewed with u/s and the right IJ was chosen-- and there was good aspiration of venous blood. A wire was then threaded into the needle trocar and this was visualized under fluoroscopy to ensure that the wire was in the superior vena cava. Once this was done, then the needle trocar was removed. A small skin caroline was made with an 11 blade knife at the wire entrance site. The dilator with the introducer sheath attached was then placed over the wire into the right internal jugular vein via the Seldinger technique and this was visualized under fluoroscopy. The dilator and sheath were in proper position as visualized by fluoroscopy. A subcutaneous pocket was then created caudad to the catheter insertion site. A transverse skin incision was made after the skin and subcutaneous tissues were infiltrated with local anesthetic. Blunt dissection was then used to create a space large enough for placement of the subcutaneous port. The catheter was then tunneled into the subcutaneous pocket. The wire and dilator were then removed. The catheter was then threaded into the introducer sheath and was positioned with its tip at the junction of the superior vena cava and the right atrium as visualized under fluoroscopy. The excess catheter was transected. The catheter was then attached to the subcutaneous port using manufacturers guidelines. The catheter was flushed with a heparin saline mixture prior to placement. Hemostasis was carefully controlled with electrocautery. The port was sutured to the subcutaneous fascia using 2-0 Vicryl suture at two sites. The port was then placed in the subcutaneous pocket. The incision were reapproximated with interrupted subdermal 3-0 vicryl sutures. The skin was reapproximated with 3-0 nylon suture in a interrupted fashion. Steristrips were used for reinforcement of the skin closure at IJ insertion site and a sterile opsite dressings were applied. The patient tolerated the procedure well. Grafts/Implants Used: Bard PowerPort isp M.R.I. 6Fr Lot [id number] Complications none
--- NOTE | 2024-07-09 14:09 | DCINST_ITS ---
Discharge Instructions Procedure Port-A-Cath Diet Discharge Diet: Light diet - advance as tolerated Activity May shower in (days): 5 (Keep port site clean and dry x5 days. Neck incision okay to get wet after 1 day. Okay to lower shower and upper sponge bath. OR okay to taper off port site with a Ziploc bag to shower) Lifting Restrictions: No lifting > 15 pounds for 3 days with the arm on the side of the port Dressing / Incision Call your doctor if your incision/area has: Continuous Slow Oozing, Sudden Increased Bleeding, Increased Pain/ Swelling, Increased Redness, Foul Smelling Discharge and Swelling at the incision site Call your doctor if you observe: Fever of 101 or Higher Change Dressing in: 2 days (2-3 days- port site; ok to remove neck opsite in 1 day) Follow Up Care Please Follow Up With: Laney Valentine MD When: In 10 days for permanent suture removal?call office for appointment Test Results: Test results from this visit will be discussed in further detail at your follow- up appointment, if applicable. Discharge Plan Admission Attending Provider: Laney Valentine Primary Care Provider: Cassie Roth Consulting Providers: Jerald Currie Instructions Print Language: Greenlandic Discharge Orders/Prescriptions Prescriptions: Continued losartan 25 mg tablet 25 mg PO QDAY lidocaine-prilocaine 2.5-2.5 % cream 1 applic topical ONCE PRN (Reason: port access) 30 Days Qty: 30 2RF dexamethasone 4 mg tablet 8 mg PO .COMPLEX Qty: 12 5RF Rx Instructions: 8 mg orally twice daily ONLY the day before, the day of, and the day after chemotherapy ondansetron 8 mg tablet,disintegrating 8 mg PO Q8H PRN (Reason: nausea and vomiting) Qty: 30 2RF prochlorperazine maleate 10 mg tablet 10 mg PO Q6H PRN (Reason: nausea and vomiting) Qty: 30 2RF mirtazapine 15 mg tablet 15 mg PO QHS Qty: 30 1RF meloxicam 15 mg tablet 15 mg PO DAILY simvastatin 40 mg tablet 40 mg PO QHS hydrochlorothiazide 12.5 mg tablet 12.5 mg PO DAILY Referrals / Follow Up: Cassie Roth, [facility] [employer] [Primary Care Provider] - Disposition Disposition (needs filled in before D/C Order can be placed): Home, Self Care
[2024-07-09 14:12] VITALS: BP 129/76; BP 140/93; PULSE 60; RESP 16; TEMP 36.1; O2SAT 98
--- NOTE | 2024-07-09 14:14 | PCM.POST.ANE ---
Anesthesia: Postop Eval I Current Vital Signs Temperature: 96.9 F Pulse Rate: 70 Blood Pressure: 129/76 Respiratory Rate: 16 Pulse Ox: 100 Oxygen Delivery Method: Room Air Assessment Airway patent: Yes Spontaneous unlabored respirations: Yes Mental status: Awake and Calm nausea: No Vomiting: No Anesthesia Complication: No Fluid Hydration Crystalloid volume administer (ml): 1,000 Total IV fluid infused: 1,000 Progress Note Anesthesia document: Postop Eval 1 completed: Yes
[2024-07-09 14:15] VITALS: BP 129/76; BP 139/81; BP 140/93; PULSE 65; PULSE 70; RESP 16; TEMP 36.1; O2SAT 100; O2SAT 98
[2024-07-09 14:20] VITALS: BP 140/93; BP 148/83; PULSE 63; RESP 16; O2SAT 98
[2024-07-09 14:24] VITALS: BP 140/93; BP 155/88; PULSE 66; RESP 16; TEMP 36.5; O2SAT 99
[2024-07-09 14:51] VITALS: BP 140/93
--- NOTE | 2024-07-09 17:45 | PCM.POSTANE2 ---
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 TEAM [email or web address] nausea No 07/09/24 14:15 SEAL DELIVERY VEHICLE TEAM [email or web address] Vomiting No 07/09/24 14:15 SEAL DELIVERY VEHICLE TEAM [email or web address] Anesthesia Postop Eval I: Fluid Summary Crystalloid volume administer 1,000 07/09/24 14:15 SEAL DELIVERY VEHICLE TEAM [email or web address] (ml) Colloids volume administered ( ml) Blood Product volume administered (ml) Total IV fluid infused 1,000 07/09/24 14:15 SEAL DELIVERY VEHICLE TEAM [email or web address] Anesthesia Postop Eval I: Summary Notes Anesthesia Complication No 07/09/24 14:15 SEAL DELIVERY VEHICLE TEAM [email or web address] Anesthesia Complication Comment: Post-operative progress note Anesthesia: Postop Eval II Evaluation Mental status: Awake Pain Level: 0 nausea: No Vomiting: No
--- NOTE | 2024-07-09 17:45 | POSTOPAN2_ITS ---
Anesthesia Postop Eval I Sum Postop Eval Completion status Anesthesia document: Postop Eval 1 completed: Yes Anesthesia Postop Eval I Summary Anesthesia Postop Eval I Summary: Anesthesia Postop Eval I: Assessment Summary Airway patent Yes 07/09/24 14:15 [email or web address] Spontaneous unlabored Yes 07/09/24 14:15 [email or web address] respirations Mental status Awake,Calm 07/09/24 14:15 [email or web address] nausea No 07/09/24 14:15 [email or web address] Vomiting No 07/09/24 14:15 [email or web address] Anesthesia Postop Eval I: Fluid Summary Crystalloid volume administer 1,000 07/09/24 14:15 [email or web address] (ml) Colloids volume administered ( ml) Blood Product volume administered (ml) Total IV fluid infused 1,000 07/09/24 14:15 [email or web address] Anesthesia Postop Eval I: Summary Notes Anesthesia Complication No 07/09/24 14:15 [email or web address] Anesthesia Complication Comment: Post-operative progress note Anesthesia: Postop Eval II Evaluation Mental status: Awake Pain Level: 0 nausea: No Vomiting: No
== END 2024-07-09 14:57 | disposition home or self-care (01) ==
LOC: SDC 10:48 → AC 10:51
PROVIDERS: PCP Nurse Practitioner Family; Referring Provider Surgery; Visit Provider Surgery
PROC: (CPT 36561; principal; 2024-07-09 12:00)
DX: Z45.2 Encounter for adjustment and management of vascular access device (principal); C77.9 Secondary and unspecified malignant neoplasm of lymph node, unspecified; C61 Malignant neoplasm of prostate; F12.90 Cannabis use, unspecified, uncomplicated; E78.00 Pure hypercholesterolemia, unspecified; Z87.891 Personal history of nicotine dependence; Z79.899 Other long term (current) drug therapy
CPT/HCPCS: 36561; 00532; 71045; 77001; J7120; J2405

== ENCOUNTER → 2024-08-27 | Outpatient (CLI) | payer MEDICARE, SELFPAY ==
--- NOTE | 2024-08-27 08:27 | BD_ITS ---
STUDY: DUAL ENERGY X-RAY ABSORPTIOMETRY / DXA REASON FOR EXAM: Male, 68 years old. PROSTATE CANCER ON ANTIANDROGEN RX TECHNIQUE: Bone Mineral Density (BMD) measurements of lumbar spine and bilateral hips were obtained. COMPARISON: None. FINDINGS: Lumbar Spine (L1-L4): g/cm2 (0.938) / T-score (-1.4) / Z-score (-0.5) Findings are suggestive of osteopenia with a low fracture risk. Left Femur Total: g/cm2 (0.760) / T-score (-1.8) / Z-score (-1.2) Left Femoral Neck: g/cm2 (0.584) / T-score (-2.5) / Z-score (-1.4) Right Femur Total: g/cm2 (0.851) / T-score (-1.2) / Z-score (-0.6) Right Femoral Neck: g/cm2 (0.611) / T-score (-2.3) / Z-score (-1.2) BD/Dexa Bone Density Study IMPRESSION: The patient is considered osteopenic as outlined below according to World Dorian Organization (WHO) criteria with a high fracture risk. Reference Information: The T-score is the number of standard deviations above or below the standard which is normal for young adults at their peak bone mineral density. The World Health Organization (WHO) interprets the T-scores as follows: Above -1 Normal bone density Between -1 and -2.5 Osteopenia Equal to / or below -2.5 Osteoporosis As a practical clinical guideline, osteopenia may be graded as follows: Mild -1 through -1.5 Moderate -1.6 through -2.0 Severe -2.1 through -2.4 The Z-score is the number of standard deviations above or below age-matched controls. A Z-score of less than -1.5 would be considered abnormal. References: 1. NIH Osteoporosis and Related Bone Diseases www osteo.org 2. International Society for Clinical Densitometry www iscd.org 3. National Osteoporosis Foundation www nof.org Electronically Signed: Bakari Dobbins MD at 13:54 EDT ,
== END | disposition home or self-care (01) ==
LOC: OPBD 08:25
PROVIDERS: PCP Nurse Practitioner Family; Referring Provider Internal Medicine Hematology & Oncology; Visit Provider Internal Medicine Hematology & Oncology
DX: M81.0 Age-related osteoporosis without current pathological fracture (principal)
CPT/HCPCS: 77080

== ENCOUNTER → 2024-11-28 | Outpatient (CLI) | payer MEDICARE, SELFPAY ==
[2024-11-28 10:50] LABS: Cholesterol 180 mg/dL (200); High Density Lipoprotein 80 mg/dL; Triglycerides 94 mg/dL; Very Low Density Lipoprotein 19 mg/dL (5-40)
== END | disposition home or self-care (01) ==
PROVIDERS: PCP Nurse Practitioner Family; Referring Provider Internal Medicine Interventional Cardiology; Visit Provider Internal Medicine Interventional Cardiology
DX: I10 Essential (primary) hypertension (principal); E78.5 Hyperlipidemia, unspecified; I45.10 Unspecified right bundle-branch block
CPT/HCPCS: 36415; 80061

== ENCOUNTER → 2024-12-04 | Outpatient (CLI) | payer MEDICARE, SELFPAY ==
--- NOTE | 2024-12-04 08:28 | CT_ITS ---
PROCEDURE: CT CHEST, ABD, PEL W/CONTRAST REASON FOR EXAM: History of metastatic prostate cancer. Prior chemotherapy. 100 cc of Isovue- 300 was injected intravenously. TECHNIQUE: Chest, abdomen and pelvis CT with intravenous contrast. CONTRAST: COMPARISON: Comparison is made with prior study dated February 05, 2024. FINDINGS: CT CHEST: Hardware: A right-sided port a catheter is seen with the tip in the superior vena cava. Lymph nodes: No mediastinal hilar or axillary lymphadenopathy. Heart and Vasculature: Normal heart size. No pericardial effusion. Thoracic aorta and pulmonary arteries are unremarkable. Coronary artery calcification. Lungs and Airways: The lungs are normally expanded and clear. Pleura: No pleural effusion. No pneumothorax. Bones: Unremarkable. CT ABDOMEN/PELVIS: Liver: Stable hypodense nodules in both the right and left lobe of the liver. These most likely represent hemangiomas. Gallbladder: Unremarkable. Spleen: Calcified splenic granulomas. Pancreas: Unremarkable. Adrenals: Unremarkable. Kidneys: Stable staghorn calculus in the right renal pelvis causing mild degree of hydronephrosis. Nonobstructive calculi in the lower pole of both kidneys. Small bilateral renal cysts. Bladder: Unremarkable. Reproductive Organs: Unremarkable. Bowel: Large hiatal hernia. Sigmoid diverticulosis. Appendix: Normal. Lymph nodes: No suspicious lymph node enlargement. Vasculature: Mild diffuse atherosclerotic calcifications are noted. Peritoneum / Retroperitoneum: No ascites. No free air. Bones: Degenerative changes of the spine. Small inguinal hernia containing fat. Small bilateral inguinal hernias containing fat greater on the right side. The patient is status post prostatectomy. CT/CT Chest, Abd, Pel w/Contrast IMPRESSION: Stable examination. One or more dose reduction techniques were used (e.g., Automated exposure contr ol, adjustment of the mA and/or kV according to patient size, use of iterative reconstruction technique). Reading Location: [id number]
[2024-12-04] MEDS: 0.9% Saline Lock 10 ML Syringe IV (08:45)
== END | disposition home or self-care (01) ==
LOC: CT 08:27
PROVIDERS: PCP Nurse Practitioner Family; Referring Provider Nurse Practitioner Family; Visit Provider Nurse Practitioner Family
DX: C61 Malignant neoplasm of prostate (principal); C77.2 Secondary and unspecified malignant neoplasm of intra-abdominal lymph nodes
CPT/HCPCS: 71260; 74177; Q9967; A4216

== ENCOUNTER → 2024-12-08 | Outpatient (CLI) | payer MEDICARE, SELFPAY ==
--- NOTE | 2024-12-08 08:13 | NM_ITS ---
PROCEDURE: BONE SCAN WHOLE BODY REASON FOR EXAM: Metastatic prostate cancer. Assess response to treatment. TECHNIQUE: Whole-body bone scan with anterior and posterior views. Imaging at 3.5 hours. RADIOPHARMACEUTICAL: 26.8 mCi Technetium-99m MDP IV COMPARISON: None available. FINDINGS: Bones: There is good uptake of the radiopharmaceutical. At about the level of T8, a linear area increased uptake is seen transversely. This most likely represents compression fracture or (less likely) degenerative disc disease. Degenerative changes are seen throughout the spine. Asymmetric degenerative changes of the left knee are seen. Asymmetric right 1st metatarsophalangeal joint degenerative changes are noted. Degenerative changes are seen of the visualized left 1st carpal-metacarpal joint. No suspicious foci of activity are otherwise identified. Kidneys: Normal activity is identified at both kidneys. NM/Bone Scan Whole Body IMPRESSION: 1. NO SCINTIGRAPHIC EVIDENCE OF METASTATIC DISEASE TO BONE. 2. At about the level of T8, a linear area increased uptake is seen transversel y. This most likely represents compression fracture or (less likely) degenerative disc disease. 3. Degenerative changes, as described. Reading Location: [id number]
== END | disposition home or self-care (01) ==
PROVIDERS: PCP Nurse Practitioner Family; Referring Provider Nurse Practitioner Family; Visit Provider Nurse Practitioner Family
DX: C61 Malignant neoplasm of prostate (principal); C77.2 Secondary and unspecified malignant neoplasm of intra-abdominal lymph nodes
CPT/HCPCS: 78306; A9503

== ENCOUNTER 2024-12-31 09:35 | Day surgery (SDC) | payer MEDICARE, SELFPAY ==
--- NOTE | 2024-12-22 18:40 | PAT.ANE_ITS ---
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 When Was Last Pacemaker Check QUESTION #4 FULL TEXT: You/Your Family Experience fever (hyperthermia) with Anesthesia Last Oral Intake Last Oral intake: Last Oral Intake NPO since Meds taken in AM with sips of water? Meds patient instructed to take am of surgery PONV PONV - debt collection specialist: PONV - debt collection specialist Female No 12/22/24 15:00 HX of Motion Sickness Yes 12/22/24 15:00 HX of N/V After Surgery No 12/22/24 15:00 Non-Smoker Yes 12/22/24 15:00 Duration of Surgery greater Yes 12/22/24 15:00 than 60 minutes Number of Risk Factors 3 12/22/24 15:00 PONV Score Moderate Risk 12/22/24 15:00 Height & Weight Height & Weight: Anesthesia: Height & Weight Height 5 ft 5 in 12/16/24 13:04 Respiratory Assessment Respiratory Assessment - debt collection specialist: Respiratory Tract Infection Hx - debt collection specialist Hx Respiratory Tract Infection No 12/22/24 15:00 STOP Sleep Apnea STOP Sleep Apnea - debt collection specialist: STOP Sleep Apnea - debt collection specialist Hx Hypertension Yes: CONTROLLED WITH MED 12/22/24 15:00 Hx Sleep Apnea No 12/22/24 15:00 CPAP BIPAP Do you snore loudly (louder No 12/22/24 15:00 than talking or can be heard Do you often feel tired/ No 12/22/24 15:00 fatigued/ sleepy during daytime? Has anyone observed you stop No 12/22/24 15:00 breathing during sleep? STOP Results Negative 12/22/24 15:00 QUESTION #5 FULL TEXT : Do you snore loudly (louder than talking or can be heard through closed doors)? 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 Specify any problems Hx of Preganancy in last 3 N/A 12/22/24 15:00 Months Nurse Filling Out Transfusion DSCHRIBER 12/22/24 15:00 & Questions: Date: 12/22/24 12/22/24 15:00 Time: 15:02 12/22/24 15:00 Patient unable to answer at this time (ie. 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 present Wears glasses Anxiety Ambulates with cane Rheumatoid arthritis Cancer Prostate disease High cholesterol History of kidney stones History of hiatal hernia Hypertension Home Medications ?Medication ?Instructions ?Recorded ?Last Taken ?Type hydrochlorothiazide 12.5 mg tablet 12.5 mg PO DAILY 04/09/24 History meloxicam 15 mg tablet 15 mg PO DAILY 03/26/2403/29 History simvastatin 40 mg tablet 40 mg PO QHS 03/26/24 History lidocaine-prilocaine 2.5 %-2.5 % 1 applic topical ONCE PRN port 07/07/24 Unknown Rx topical cream access 30 days #30 grams losartan 25 mg tablet 50 mg PO QDAY 10/09/24 Unkno wn History darolutamide 300 mg tablet (Nubeqa) 600 mg PO BID 12/23 Unknown History leuprolide (3 month) 22.5 mg (3 22.5 mg IM .EVERY 3 MO NT 12/22/24 Unknown History month) intramuscular syringe kit Allergy/AdvReac Type Severity Reaction Status Date / Time Penicillins Allergy Severe Anaphylaxis Verified 12/22/24 14:56 lisinopril Allergy Intermediate Other Verified 12/22/24 14:56 Family History Mother Cancer liver Grandfather Cancer Other Heart disease Hypertension Surgical History (Updated 12/22/24 @ 15:09 by Beverly Shore) History of vascular access device H/O vasectomy H/O prostatectomy History of melanoma excision Social History Smoking Status: Former smoker Tobacco: How many years used: 1 alcohol intake: current alcohol intake frequency: a few times a month substance use type: marijuana Audit: Pertinent Findings Pertinent Findings EKG Perinent findings: EKG 04/09/24: Vent. Rate : 077 BPM Atrial Rate : 077 BPM P-R Int : 158 ms QRS Dur : 130 ms QT Int : 434 ms P-R-T Axes : 057 -40 012 degrees QTc Int : 491 ms Normal sinus rhythm Left axis deviation Right bundle branch block Abnormal ECG When compared with ECG of 27-MAR-2024 07:19, No significant change was found Recommendation Anesthesia Recommendation Anesthesia recommendation: OPTIMIZED for anesthesia
[2024-12-31] VITALS (11 sets, daily range): BP systolic 111–147; BP diastolic 71–97; PULSE 76–94; RESP 12–18; TEMP 36.2–36.4; O2SAT 93–100; BMI 27.1
--- NOTE | 2024-12-31 10:21 | HP.PCM_ITS ---
HPI - General General Date of Admission: 12/31/24 Date of Service: 12/31/24 Chief Complaint: Right inguinal hernia/umbilical hernia HPI Narrative DALILA JANSEN, is a 69 M who presents for elective repair of his right inguinal hernia as well as an umbilical hernia. He was seen in the office recently and I offered him repair of his right inguinal hernia via an open approach since he has had a previous prostatectomy last year. He also had an umbilical hernia that would benefit from repair as well. 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 lymph node metastasis present Wears glasses Anxiety Ambulates with cane Rheumatoid arthritis Cancer Prostate disease High cholesterol History of kidney stones History of hiatal hernia Hypertension Home Medications ?Medication ?Instructions ?Recorded ?Last Taken ?Type hydrochlorothiazide 12.5 mg tablet 12.5 mg PO DAILY 04/09/24 History meloxicam 15 mg tablet 15 mg PO DAILY 03/26/2402/20 History simvastatin 40 mg tablet 40 mg PO QHS 03/26/24 History lidocaine-prilocaine 2.5 %-2.5 % 1 applic topical ONCE PRN port 07/07/24 Unknown Rx topical cream access 30 days #30 grams losartan 25 mg tablet 50 mg PO QDAY 10/09/2412/31 08:30 History darolutamide 300 mg tablet (Nubeqa) 600 mg PO BID 12/2312/30/24 History leuprolide (3 month) 22.5 mg (3 22.5 mg IM .EVERY 3 [facility] 12/22/24 12/11/24 History month) intramuscular syringe kit Allergy/AdvReac Type Severity Reaction Status Date / Time Penicillins Allergy Severe Anaphylaxis Verified 12/31/24 09:52 lisinopril Allergy Intermediate Other Verified 12/31/24 09:52 Family History Mother Cancer liver Grandfather Cancer Other Heart disease Hypertension Surgical History History of vascular access device H/O vasectomy H/O prostatectomy History of melanoma excision Social History Smoking Status: Former smoker Tobacco: How many years used: 1 alcohol intake: current alcohol intake frequency: a few times a month substance use type: marijuana Vital Signs Vital Signs Vital Signs: 12/31/24 10:00 12/31/24 10:00 Temperature 97.1 F L Temperature Source Temporal Pulse Rate 84 Respiratory Rate 16 Respiratory Pattern Normal Blood Pressure 147/97 H Blood Pressure Mean 113 Blood Pressure Source Monitor Blood Pressure Position Sitting Blood Pressure Location Left Arm Pulse Ox 100 Oxygen Delivery Method Room Air Weight Weight: 163 lb 2.273 oz Body Mass Index (BMI) 27.1 Physical Exam Const alert, oriented x3 and no apparent distress Assessment & Plan Assessment/Plan (1) Right inguinal hernia: PLAN: The patient is a 69-year-old male with a right inguinal hernia as well as umbilical hernia. I recommended open repairs of both. We discussed the details of the planned procedure and he wishes to proceed. This will begin shortly. Charges/Coding Visit Charges Inpatient E&M: 13913 Init Hosp L1
[2024-12-31] MEDS: 0.9% Normal Saline (1000mL) 1,000 ML 15 ML IV (10:28)
--- NOTE | 2024-12-31 10:54 | PCM.PRE.AN2 ---
ASA Classification* ASA Classification ASA Classification: 2 Assessment & Plan Anesthesia* Anesthesia Assessment Anesthesia Assessment: Discussed sedation and/or anesthesia options, risks, benefits, and alternatives with patient/parents/legal guardian/POA. Questions invited. The patient/parents/legal guardian/POA seems to understand and agrees to proceed with anesthesia plan. Reviewed the physical assessment, medical history, allergy history and patient home medications list prior to surgery/procedure/anesthetic and documented any changes. Performed airway and anesthesia risk assessments. Anesthesia Type Anesthesia Type: General Anesthesia Focused Assessment* Temperature: 97.1 F Pulse Rate: 84 Blood Pressure: 147/97 Respiratory Rate: 16 Pulse Ox: 100 Airway Assessment Mouth opens: >3 cm Mallampati Score: II Focused Labs Anesthesia Preop lab: CBC WBC 7.3 K/mm3 (4.4-11.0) 12/11/24 14:12/11/24 RBC 3.80 M/mm3 (4.6-6.2) L 12/11/24 14:22 12/11/24 Hgb 11.9 g/dL (13.0-16.5) L 12/11/24 14:22 12/11/24 Hct 36.4 % (40-54) L 12/11/24 14:22 12/11/24 Plt Count 303 K/mm3 (150-450) 12/11/24 14:22 12/11/24 CHEMISTRY Potassium 3.7 mmol/L (3.5-5.1) 12/11/24 14:22 12/11/24 Sodium 140 mmol/L (136-145) 12/11/24 14:22 12/11/24 Magnesium 2.1 mg/dL (1.6-2.6) 09/18/24 12:41 09/18/24 Phosphorus 3.7 mg/dL (2.5-4.9) 09/18/24 12:41 09/18/24 BUN 19 mg/dL (7-18) H 12/11/24 14:22 12/11/24 Creatinine 1.09 mg/dL (0.70-1.30) 12/11/24 14:22 12/11/24 Glucose 115 mg/dL (74-106) H 12/11/24 14:22 12/11/24 COAG PT 13.5 SECONDS (11.7-14.9) 11/21/22 15:08 11/21/22 Pre-Assessment Diagnosis/Proposed Procedure Planned Operative Procedure(s): OPEN RIGHT INGUINAL HERNIA UMBILICAL HERNIA REPAIR OPEN WITH POSS MESH Anesthesia History Anesthesia History - facility security officer: Anesthesia History - facility security officer Hx Hospitalization No 12/22/24 15:00 Any Problems With Anesthesia No 12/22/24 15:00 Cholinesterase deficiency No 12/22/24 15:00 You/Your Family Experience No 12/22/24 15:00 fever (hyperthermia) with Relationship Recent Exposure to Contagious No 12/31/24 10:00 Disease Does patient have nerve No 12/22/24 15:00 stimulator Patient instructed to have device shut off --Does patient have Pacemaker No 12/31/24 10:00 or ICD? When Was Last Pacemaker Check QUESTION #4 FULL TEXT: You/Your Family Experience fever (hyperthermia) with Anesthesia Last Oral Intake Last Oral intake: Last Oral Intake NPO since 21:00 12/31/24 10:00 Meds taken in AM with sips of Yes 12/31/24 10:00 water? Meds patient instructed to take am of surgery PONV PONV - facility security officer: PONV - facility security officer Female No 12/22/24 15:00 HX of Motion Sickness Yes 12/22/24 15:00 HX of N/V After Surgery No 12/22/24 15:00 Non-Smoker Yes 12/22/24 15:00 Duration of Surgery greater Yes 12/22/24 15:00 than 60 minutes Number of Risk Factors 3 12/22/24 15:00 PONV Score Moderate Risk 12/22/24 15:00 Height & Weight Height & Weight: Anesthesia: Height & Weight Height 5 ft 5 in 12/31/24 10:00 Weight: 74 kg 12/31/24 10:00 Body Mass Index (BMI) 27.1 12/31/24 10:00 Respiratory Assessment Respiratory Assessment - facility security officer: Respiratory Tract Infection Hx - facility security officer Hx Respiratory Tract Infection No 12/22/24 15:00 STOP Sleep Apnea STOP Sleep Apnea - facility security officer: STOP Sleep Apnea - facility security officer Hx Hypertension Yes: CONTROLLED WITH MED 12/22/24 15:00 Hx Sleep Apnea No 12/22/24 15:00 CPAP BIPAP Do you snore loudly (louder No 12/22/24 15:00 than talking or can be heard Do you often feel tired/ No 12/22/24 15:00 fatigued/ sleepy during daytime? Has anyone observed you stop No 12/22/24 15:00 breathing during sleep? STOP Results Negative 12/22/24 15:00 QUESTION #5 FULL TEXT : Do you snore loudly (louder than talking or can be heard through closed doors)? 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 Specify any problems Hx of Preganancy in last 3 N/A 12/22/24 15:00 Months Nurse Filling Out Transfusion DSCHRIBER 12/22/24 15:00 & Questions: Date: 12/22/24 12/22/24 15:00 Time: 15:02 12/22/24 15:00 Patient unable to answer at this time (ie. confused, unrespo /Reproduction History /Reproductive History - facility security officer: /Reproductive Hx- facility security officer Hx Now No 12/22/24 15:00 Gestational Age (in weeks): EDC: Hx Hx Para Hx Section SAB No 12/22/24 15:00 Active Medications Active Medications: Current Medications Generic Name Dose Route Start Last Admin Trade Name Freq PRN Reason Stop Dose Admin Clindamycin Phosphate 900 mg in 50 mls @ 75 mls/hr 12/31/24 11:00 Cleocin IV 12/31/24 11:39 PREOP ONE Sodium Chloride 1,000 mls @ 15 mls/hr 12/31/24 09:45 12/31/24 10:28 IV 01/05/25 23:04 15 mls/hr .Q48H GRANT Administration Protocol PFSH Medical History Back pain Shortness of breath on exertion History of pain when walking History of edema Right inguinal hernia Osteopenia Emotional lability Encounter for chemotherapy management Encounter for education Adjustment disorder with anxiety 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 Regional lymph node metastasis present Wears glasses Anxiety Ambulates with cane Rheumatoid arthritis Cancer Prostate disease High cholesterol History of kidney stones History of hiatal hernia Hypertension Home Medications ?Medication ?Instructions ?Recorded ?Last Taken ?Type hydrochlorothiazide 12.5 mg tablet 12.5 mg PO DAILY 03/26/24 04/09/24 History meloxicam 15 mg tablet 15 mg PO DAILY 03/26/24 12/30/24 History simvastatin 40 mg tablet 40 mg PO QHS 03/26/24 04/08/24 History lidocaine-prilocaine 2.5 %-2.5 % 1 applic topical ONCE PRN port 07/07/24 Unknown Rx topical cream access 30 days #30 grams losartan 25 mg tablet 50 mg PO QDAY 10/09/24 12/31/24 08:30 History darolutamide 300 mg tablet (Nubeqa) 600 mg PO BID 10/30/24 12/30/24 History leuprolide (3 month) 22.5 mg (3 22.5 mg IM .EVERY 3 MONTHS 12/22/24 12/11/24 History month) intramuscular syringe kit Allergy/AdvReac Type Severity Reaction Status Date / Time Penicillins Allergy Severe Anaphylaxis Verified 12/31/24 09:52 lisinopril Allergy Intermediate Other Verified 12/31/24 09:52 Family History Mother Cancer liver Grandfather Cancer Other Heart disease Hypertension Surgical History History of vascular access device H/O vasectomy H/O prostatectomy History of melanoma excision Social History Smoking Status: Former smoker Tobacco: How many years used: 1 alcohol intake: current alcohol intake frequency: a few times a month substance use type: marijuana Review of Systems (Anesthesia) ROS Narrative System reviewed and no additional complaints, except as documented.
[2024-12-31] MEDS: Clindamycin 900 MG/50 ML BAG 75 MG IV (11:00)
[2024-12-31] MEDS: Gentamicin 80 MG/2 ML Vial (11:20)
--- NOTE | 2024-12-31 12:00 | HERN_PTH ---
PATIENT: DALILA JANSEN LOC: [facility] – [place] U#:[id number] AGE/SX: 69/M ROOM: RE12/31/[address]: Dr. Jerald Currie MD : 1955 BED: DIS: 12/31/2024 SPEC #: [id number] RECD: 12/31/24 12:32 STATUS: JESSICA REZaria #: [id number] ALTA: 12/31/24 12:[address]: Jerald Currie DEPT: SURGICAL PATHOLOGY RECD BY: Osito Mcgrath ENTERED: 12/31/24 12:33 SP TYPE: Hernia OTHR DR: Cassie Roth, RAFAL Tissues: HERNIA Procedures: Frozen Section (charge) Surgery Specimen Level II HEADER OPERATION: Open right inguinal hernia repair with mesh, open umbilical hernia PRE-OP DIAGNOSIS: Right inguinal hernia TISSUE SUBMITTED: A- Right inguinal hernia mass, B- Right inguinal hernia sac FROZEN SECTION DIAGNOSIS Right inguinal hernia mass: Mesh with fibrosis and mild inflammation. MS.mr 12/31/2024 MICROSCOPIC DIAGNOSIS A. Right inguinal mass, excision: * Fibrous tissue with mesh demonstrating fibrosis and chronic inflammation B. Right inguinal hernia sac, excision: * Fibroadipose tissue with chronic inflammation and focally reactive mesothelium, consistent with hernia sac MICROSCOPIC DESCRIPTION Slides are reviewed. GROSS DESCRIPTION Specimen A-received fresh labeled Dalila Jansen and designated right inguinal mass is a 4.2 x 3.5 x 1.5 cm portion of davies synthetic mesh material that is wrinkled and overlying by davies fibrous and fibroadipose tissue. Sectioning shows a pink-davies uniform gritty cut surface. One sales representative printing supplies section is submitted for frozen section. Cassette Summary:1-frozen section sample2-one sales representative printing supplies sectionSpecimen B received in formalin labeled Dalila Jansen and designated right inguinal hernia sac is a 7.1 x 2.5 x 0.6 cm irregular shaped portion of pink-davies fibrous tissue with attached yellow, lobular, adipose tissue. Sectioning is unremarkable. Four sections are submitted in one cassette.GURJIT. 12/31/2024 TC: CPT:[id number]
[2024-12-31] MEDS: Lidocaine 1% /Epi 1:100 (20ml) 20 ML Vial (13:10)
[2024-12-31] MEDS: Bupivacaine Mpf 0.5% 30 ML VIAL (13:10)
--- NOTE | 2024-12-31 13:34 | PCM.POST.ANE ---
Anesthesia: Postop Eval I Current Vital Signs Temperature: 97.5 F Pulse Rate: 94 Blood Pressure: 135/71 Respiratory Rate: 16 Pulse Ox: 96 Oxygen Delivery Method: Room Air Assessment Airway patent: Yes Spontaneous unlabored respirations: Yes Mental status: Awake and Calm nausea: No Vomiting: No Anesthesia Complication: No Fluid Hydration Crystalloid volume administer (ml): 1,200 Total IV fluid infused: 1,200 Progress Note Anesthesia document: Postop Eval 1 completed: Yes
--- NOTE | 2024-12-31 13:35 | EX.PCM.DISCH ---
Discharge Instructions Diet Discharge Diet: Light diet - advance as tolerated Activity Discharge Activity: Return to Normal Activity and May Shower May shower in (days): 1 Ice area for (Minutes): 30 Lifting Restrictions: No lifting more than 20 pounds for 6 weeks Additional Activity Instructions:: Wear abdominal binder for comfort as needed Dressing / Incision Call your doctor if your incision/area has: Continuous Slow Oozing, Sudden Increased Bleeding, Increased Pain/ Swelling, Increased Redness, Foul Smelling Discharge and Swelling at the incision site Call your doctor if you observe: Fever of 101 or Higher Cleanse incision/area with: Soap & Water Follow Up Care Please Follow Up With: Jerald Currie MD When: 2 weeks -please call office to schedule appointment Test Results: Test results from this visit will be discussed in further detail at your follow-up appointment, if applicable. Discharge Plan Admission Primary Reason for Your Visit: Open right umbilical hernia repair and umbilical hernia repair Attending Provider: Jerald Currie Primary Care Provider: Cassie Roth Instructions Print Language: Czech Discharge Orders/Prescriptions Prescriptions: New oxycodone-acetaminophen [Percocet] 5-325 mg tablet 1 tab PO Q8H PRN (Reason: pain) 3 Days Qty: 10 0RF Continued lidocaine-prilocaine 2.5-2.5 % cream 1 applic topical ONCE PRN (Reason: port access) 30 Days Qty: 30 2RF losartan 25 mg tablet 50 mg PO QDAY Nubeqa 300 mg tablet 600 mg PO BID leuprolide (3 month) 22.5 mg syringe kit 22.5 mg IM .EVERY 3 MONTHS meloxicam 15 mg tablet 15 mg PO DAILY simvastatin 40 mg tablet 40 mg PO QHS hydrochlorothiazide 12.5 mg tablet 12.5 mg PO DAILY Referrals / Follow Up: Cassie Roth, HEALTH DATA ANALYST-C [Primary Care Provider] - Disposition Disposition (needs filled in before D/C Order can be placed): Home, Self Care
--- NOTE | 2024-12-31 13:39 | PCM.OPRPT ---
Problems Associated Problem List Diagnoses (1) Right inguinal hernia: Multi Select Codes Digestive Digestive CPT Codes: 60316 Prp i/meghan init reduc >5 yr and 02280 RPR AA HRN RCR < 3 NCR/STRN Operative Report (Standard) Operative Information Date of Procedure: 12/31/24 Pre-Operative Diagnosis: Right inguinal hernia; umbilical hernia Post-Operative Diagnosis: Same Surgery/Procedure Performed: 1. Open right inguinal hernia repair with mesh 2. Open umbilical hernia repair without mesh building services supervisor: Yes Delivery Supervisor: Leslie Hawk Tasks completed by first officer and flight instructor: Closing and Retracting Additional medical administrative assistant?: No Type of Anesthesia: General and Local RN Documented Start/Stop Times: Operation Date: 12/31/24 11:00 Case Time Into Pre-Op 12/31/24 09:43 Out of Pre-Op 12/31/24 10:51 Anesthesia Start 12/31/24 10:56 Into Room 12/31/24 10:56 Procedure Start 12/31/24 11:16 Procedure End 12/31/24 13:19 Anesthesia End 12/31/24 13:25 Out of Room 12/31/24 13:25 Into Recovery 12/31/24 13:28 Procedure Start Time: 11:16 Procedure Stop Time: 13:19 Select all DRAINS/GRAFTS/IMPLANTS that apply: Prosthetic device Prosthetic device details: Bard plug and patch Special Medications: 2 g Ancef Estimated Blood Loss: 30 mL Specimen collected: Yes Description of specimen(s) removed: Right groin mass -clinically scarred tissue and old mesh plug Description of surgery: The patient is a 69-year-old male who recently presented to my office with a right inguinal hernia as well as an umbilical hernia. The right inguinal hernia was becoming larger and causing him more discomfort. Patient had a previous robotic prostatectomy back in June 2024. For this reason I could not offer him a minimally invasive repair. And so I recommended an open right inguinal hernia repair with mesh. He also had a fairly symptomatic umbilical hernia that was reportedly repaired at the time of his prostatectomy which seems to have recurred. I offered to repair this as well. Patient was brought to the operating room today following informed consent. Preoperative antibiotics were given and a timeout was performed. He was placed supine on the operative table with arms outstretched on arm boards. General LMA anesthesia was induced. The right groin was injected with local anesthetic and a right inguinal incision was made using #15 blade. Bovie electrocautery was then used to dissect down through subcutaneous tissues. Once at the level of the external abdominal oblique's, this plane was widened to fully expose the area. A #15 blade was then used to make a small opening in the external abdominal bleak fascia and then scissors were used to extend the incision superiorly and inferiorly. Curved hemostats were placed on either side of the cut edges of the external abdominal oblique's. The cord structures were encircled using my index finger and then was replaced with a [place] drain. Patient had a direct cord lipoma as well as an indirect hernia. The indirect was actually much larger. In the process of dissecting down the sac it was noted that as we pulled up on the cord, there appeared to be a hard nodular mass. Upon closer dissection it was noted that the vas deferens continued beyond this structure. This was eventually dissected free. Upon closer examination this appeared to be consistent with a previous piece of mesh as well as fibrous/fatty tissue. This was sent to pathology and a frozen section confirmed the same.. Next the defect was repaired by inserting an extra-large mesh plug and this was sutured using Prolene to the surrounding structures. A mesh patch was then sutured to the pubic tubercle as well as around the shelving edge. The mesh laid nicely. Next the external abdominal oblique fascia was then closed using a running 0 Vicryl suture. 3-0 Vicryl was then used to close the Romeo's fascia. 3-0 Vicryl was also used to reapproximate the subdermal layer. Finally 4-0 Vicryl was used to close the skin. Skin glue was applied as dressing. The umbilical hernia was repaired by reopening the previous curvilinear incision above the umbilicus. Bovie electrocautery was then used dissect down through the tissues to the level of the fascia. The skin of the umbilicus was detached from the underlying hernia sac. The fascial defect was about 1.5 cm and was fat-containing. The hernia sac was excised. The fascial defect was then closed primarily using 0 Nurolon placed in an interrupted manner. About 6 sutures were placed. This closed the fascial defect nicely without any undue tension. No previous sutures were noted. The skin of the umbilicus was then reaffixed to the underlying fascia using 2-0 Vicryl. 3-0 Vicryl was then used to reapproximate the subdermal layer. 4-0 Vicryl was then used to close the skin. Skin glue was applied as dressing. An abdominal binder was placed. He was awakened from anesthesia and taken to recovery in good condition. A GAMBLING DEALER was utilized as a first mate. Her role included retraction and assistance with closure. Surgical Findings: See description of surgery Complications Complications: No Admit VTE Documentation VTE Present on Admission: No VTE Mechan Device Prophylaxis: SCD's VTE Pharm Prophylaxis ordered?: No Reason prophylaxis not ordered: Treatment Not Indicated
--- NOTE | 2024-12-31 13:42 | POSTOPAN2_ITS ---
Anesthesia Postop Eval I Sum Postop Eval Completion status Anesthesia document: Postop Eval 1 completed: Yes Anesthesia Postop Eval I Summary Anesthesia Postop Eval I Summary: Anesthesia Postop Eval I: Assessment Summary Airway patent Yes 12/31/24 13:36 LITIGATION SERVICES MANAGER.[email or web address] Spontaneous unlabored Yes 12/31/24 13:36 LITIGATION SERVICES MANAGER.GDOTT respirations Mental status Awake,Calm 12/31/24 13:36 LITIGATION SERVICES MANAGER.GDOTT nausea No 12/31/24 13:36 LITIGATION SERVICES MANAGER.GDOTT Vomiting No 12/31/24 13:36 LITIGATION SERVICES MANAGER.GDOTT Anesthesia Postop Eval I: Fluid Summary Crystalloid volume administer 1,200 12/31/24 13:36 LITIGATION SERVICES MANAGER.GDOTT (ml) Colloids volume administered ( ml) Blood Product volume administered (ml) Total IV fluid infused 1,200 12/31/24 13:36 LITIGATION SERVICES MANAGER.GDOTT Anesthesia Postop Eval I: Summary Notes Anesthesia Complication No 12/31/24 13:36 LITIGATION SERVICES MANAGER.GDOTT Anesthesia Complication Comment: Post-operative progress note Anesthesia: Postop Eval II Evaluation Mental status: Awake Pain Level: 2 nausea: No Vomiting: No
--- NOTE | 2024-12-31 13:42 | PCM.POSTANE2 ---
Anesthesia Postop Eval I Sum Postop Eval Completion status Anesthesia document: Postop Eval 1 completed: Yes Anesthesia Postop Eval I Summary Anesthesia Postop Eval I Summary: Anesthesia Postop Eval I: Assessment Summary Airway patent Yes 12/31/24 13:36 GARDEN MACHINERY MECHANIC.GDOTT Spontaneous unlabored Yes 12/31/24 13:36 GARDEN MACHINERY MECHANIC.GDOTT respirations Mental status Awake,Calm 12/31/24 13:36 GARDEN MACHINERY MECHANIC.GDOTT nausea No 12/31/24 13:36 GARDEN MACHINERY MECHANIC.GDOTT Vomiting No 12/31/24 13:36 GARDEN MACHINERY MECHANIC.GDOTT Anesthesia Postop Eval I: Fluid Summary Crystalloid volume administer 1,200 12/31/24 13:36 GARDEN MACHINERY MECHANIC.GDOTT (ml) Colloids volume administered ( ml) Blood Product volume administered (ml) Total IV fluid infused 1,200 12/31/24 13:36 GARDEN MACHINERY MECHANIC.GDOTT Anesthesia Postop Eval I: Summary Notes Anesthesia Complication No 12/31/24 13:36 GARDEN MACHINERY MECHANIC.GDOTT Anesthesia Complication Comment: Post-operative progress note Anesthesia: Postop Eval II Evaluation Mental status: Awake Pain Level: 2 nausea: No Vomiting: No
== END 2024-12-31 15:36 | disposition home or self-care (01) ==
LOC: SDC 09:40 → AC 10:01
PROVIDERS: PCP Nurse Practitioner Family; Visit Provider Surgery
PROC: (CPT 49613; principal; 2024-12-31 10:45)
DX: K42.9 Umbilical hernia without obstruction or gangrene (principal); K40.90 Unilateral inguinal hernia, without obstruction or gangrene, not specified as recurrent; Z87.891 Personal history of nicotine dependence; E78.00 Pure hypercholesterolemia, unspecified; I10 Essential (primary) hypertension; D17.5 Benign lipomatous neoplasm of intra-abdominal organs; R19.09 Other intra-abdominal and pelvic swelling, mass and lump; Z79.899 Other long term (current) drug therapy
CPT/HCPCS: 49613; 49505; 49623; 00830; 88302; 88331; A4216; C1781; J2405

== ENCOUNTER → 2025-04-02 | Outpatient (CLI) | payer MEDICARE, SELFPAY ==
--- NOTE | 2025-04-02 19:04 | CT_ITS ---
PROCEDURE: EXTREMITY LOWER WITHOUT CONTRA 04/02/2025 REASON FOR EXAM: KNEE SURGERY TEMPLATING TECHNIQUE: Axial CT images of the left knee were obtained without the administration of intravenous contrast. Coronal and Sagittal reconstruction series were provided. One or more dose reduction techniques were used (e.g., Automated exposure control, adjustment of the mA and/or kV according to patient size, use of iterative reconstruction technique). COMPARISON: None FINDINGS: See impression CT/Extremity Lower without Contra IMPRESSION: Advanced tricompartmental left knee osteoarthritis including near [id number] articulation and prominent marginal osteophytes. Negative for acute fracture or subluxation. Small left knee joint effusion. 1 4 mm osteochondral body along the posterior aspect of the medial femoral condyle. Moderate-sized Monzon's cyst. Vascular calcific ations. Moderate left hip osteoarthritis. Colonic diverticulosis. No significant findings about the left ankle. Reading Location: [facility]
== END | disposition home or self-care (01) ==
PROVIDERS: PCP Nurse Practitioner Family; Visit Provider Student in an Organized Health Care Education/Training Program
DX: M17.12 Unilateral primary osteoarthritis, left knee (principal)
CPT/HCPCS: 73700

== ENCOUNTER 2025-04-27 09:38 | Day surgery (SDC) | payer MEDICARE, SELFPAY ==
--- NOTE | 2025-03-30 15:35 | PAT.ANESEVAL ---
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 When Was Last Pacemaker Check QUESTION #4 FULL TEXT: You/Your Family Experience fever (hyperthermia) with Anesthesia Last Oral Intake Last Oral intake: Last Oral Intake NPO since Meds taken in AM with sips of water? Meds patient instructed to take am of surgery PONV PONV - interior design program chair: PONV - interior design program chair Female No 03/30/25 13:01 HX of Motion Sickness No 03/30/25 13:01 HX of N/V After Surgery No 03/30/25 13:01 Non-Smoker Yes 03/30/25 13:01 Duration of Surgery greater No 03/30/25 13:01 than 60 minutes Number of Risk Factors 1 03/30/25 13:01 PONV Score Low Risk 03/30/25 13:01 Height & Weight Height & Weight: Anesthesia: Height & Weight Height 5 ft 5 in 03/05/25 14:12 Respiratory Assessment Respiratory Assessment - interior design program chair: Respiratory Tract Infection Hx - interior design program chair Hx Respiratory Tract Infection No 03/30/25 13:01 STOP Sleep Apnea STOP Sleep Apnea - interior design program chair: STOP Sleep Apnea - interior design program chair Hx Hypertension Yes: CONTROLLED WITH MED 03/30/25 13:01 Hx Sleep Apnea No 03/30/25 13:01 CPAP BIPAP Do you snore loudly (louder No 03/30/25 13:01 than talking or can be heard Do you often feel tired/ No 03/30/25 13:01 fatigued/ sleepy during daytime? Has anyone observed you stop No 03/30/25 13:01 breathing during sleep? STOP Results Negative 03/30/25 13:01 QUESTION #5 FULL TEXT : Do you snore loudly (louder than talking or can be heard through closed doors)? 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 Specify any problems Hx of Preganancy in last 3 N/A 03/30/25 13:01 Months Nurse Filling Out Transfusion VCHRISTIN 03/30/25 13:01 & Questions: Date: 03/30/25 03/30/25 13:01 Time: 13:07 03/30/25 13:01 Patient unable to answer at this time (ie. confused, unrespo /Reproduction History /Reproductive History - interior design program chair: /Reproductive Hx- interior design program chair Hx Now No 03/30/25 13:01 Gestational Age (in weeks): EDC: Hx Hx Para Hx Section SAB No 03/30/25 13:01 [facility] Medical History (Updated 03/30/25 @ 13:11 by Serene Toro) History of echocardiogram Cardiology follow-up encounter Full dentures Back pain Shortness of breath on exertion History of pain when walking History of edema Right inguinal hernia Osteopenia Emotional lability Encounter for chemotherapy management Encounter for education Adjustment disorder with anxiety 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 Regional lymph node metastasis present Wears glasses Anxiety Ambulates with cane Rheumatoid arthritis Cancer Prostate disease High cholesterol History of kidney stones History of hiatal hernia Hypertension Home Medications ?Medication ?Instructions ?Recorded ?Last Taken ?Type hydrochlorothiazide 12.5 mg tablet 12.5 mg PO DAILY 03/26/24 04/09/24 History meloxicam 15 mg tablet 15 mg PO DAILY 03/26/24 12/30/24 History simvastatin 40 mg tablet 40 mg PO QHS 03/26/24 04/08/24 History lidocaine-prilocaine 2.5 %-2.5 % 1 applic topical ONCE PRN port 07/07/24 Unknown Rx topical cream access 30 days #30 grams losartan 25 mg tablet 50 mg PO QDAY 10/09/24 12/31/24 08:30 History darolutamide 300 mg tablet (Nubeqa) 600 mg PO BID 10/30/24 12/30/24 History leuprolide (3 month) 22.5 mg (3 22.5 mg IM .EVERY 3 MONTHS 12/22/24 12/11/24 History month) intramuscular syringe kit terbinafine HCl 250 mg tablet 250 mg PO QDAY 01/21/25 Unknown History acetaminophen 325 mg tablet 650 mg PO Q4H PRN pain 03/30/25 Unknown History (Tylenol) cholecalciferol (vitamin D3) 25 25 mcg PO DAILY 03/30/25 Unknown History mcg (1,000 unit) capsule (Vitamin D3) Allergy/AdvReac Type Severity Reaction Status Date / Time Penicillins Allergy Severe Anaphylaxis Verified 03/30/25 12:47 lisinopril Allergy Intermediate Other Verified 03/30/25 12:47 Family History Mother Cancer liver Grandfather Cancer Other Heart disease Hypertension Surgical History (Updated 03/30/25 @ 13:01 by Serene Toro) Hx of tooth extraction Status post tooth extraction H/O hernia repair S/P right inguinal hernia repair History of vascular access device H/O vasectomy H/O prostatectomy History of melanoma excision Social History Smoking Status: Former smoker Tobacco: How many years used: 1 alcohol intake: current alcohol intake frequency: a few times a month substance use type: marijuana Audit: Pertinent Findings Pertinent Findings EKG Perinent findings: EKG from cardiology visit on 10/2024: SR with RBBB, PVCs Echo (EF%) pertinent findings: 10/2024: EF 60-65%, normal wall motion, aortic valve leaflets mildly thickned, mitral valve mildly calcified, otherwise WNL study Recommendation Anesthesia Recommendation Anesthesia recommendation: OPTIMIZED for anesthesia
[2025-04-10 12:10] LABS: Albumin, Serum 4.3 g/dL (3.4-4.8)
[2025-04-10 13:51] LABS: Magnesium 2.2 mg/dL (1.5-2.2)
[2025-04-27] VITALS (13 sets, daily range): BP systolic 86–161; BP diastolic 56–99; PULSE 65–94; RESP 16–18; TEMP 36.1–37.3; O2SAT 93–100; BMI 25.7
[2025-04-27] MEDS: Lactated Ringers 1,000 ML 15 ML IV (10:08)
[2025-04-27] MEDS: Acetaminophen 500 MG Tablet 1000 MG PO (10:08)
[2025-04-27] MEDS: Magnesium 1 GM over 15 mins IV (10:08)
[2025-04-27] MEDS: Gabapentin 600 MG Tablet PO (10:09)
[2025-04-27] MEDS: Celecoxib 200 MG Capsule 400 MG PO (10:09)
--- NOTE | 2025-04-27 10:49 | PRE.ANES_ITS ---
ASA Classification* ASA Classification ASA Classification: 2 Assessment & Plan Anesthesia* Anesthesia Assessment Anesthesia Assessment: Discussed sedation and/or anesthesia options, risks, benefits, and alternatives with patient/parents/legal guardian/POA. Questions invited. The patient/parents/legal guardian/POA seems to understand and agrees to proceed with anesthesia plan. Reviewed the physical assessment, medical history, allergy history and patient home medications list prior to surgery/procedure/anesthetic and documented any changes. Performed airway and anesthesia risk assessments. Anesthesia Type Anesthesia Type: Spinal and Block (Patient is consented for adductor canal block.) History Source History Obtained from:: Patient and Chart Anesthesia Focused Assessment* Temperature: 98.6 F Pulse Rate: 77 Blood Pressure: 142/91 Respiratory Rate: 16 Pulse Ox: 100 Oxygen Delivery Method: Room Air Airway Assessment Mouth opens: >3 cm Mallampati Score: III Teeth Condition: Dentures (Patient has full upper and lower dentures. They are out.) Neck Range of motion (ROM): Full ROM Labs Anesthesia Preop lab: CBC WBC 5.7 K/mm3 (4.4-11.0) 04/16/25 13:04/16/25 RBC 3.62 M/mm3 (4.6-6.2) L 04/16/25 13:04/16/25 Hgb 11.8 g/dL (13.0-16.5) L 04/16/25 13:30 5 Hct 35.0 % (40-54) L 04/16/25 13:30 04/16/25 Plt Count 295 K/mm3 (150-450) 04/16/25 13:04/16/25 CHEMISTRY Potassium 3.5 mmol/L (3.3-5.1) 04/16/25 13:30 04/16/25 Sodium 139 mmol/L (133-145) 04/16/25 13:04/16/25 Magnesium 2.2 mg/dL (1.5-2.2) 04/10/25 11:17 04/10/25 Phosphorus 3.7 mg/dL (2.5-4.9) 09/18/24 12:41 09/18/24 BUN 20 mg/dL (4-19) H 04/16/25 13:30 04/16/25 Creatinine 0.92 mg/dL (0.70-1.20) 04/16/25 13:30 04/16/25 Glucose 123 mg/dL (70-99) H 04/16/25 13:30 04/16/25 COAG PT 13.5 SECONDS (11.7-14.9) 11/21/22 15:08 Pre-Assessment Diagnosis/Proposed Procedure Planned Operative Procedure(s): (L) ROBOTIC ASSISTED LEFT TOTAL KNEE ARTHROPLASTY, ERAS Anesthesia History 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 When Was Last Pacemaker Check QUESTION #4 FULL TEXT: You/Your Family Experience fever (hyperthermia) with Anesthesia Last Oral Intake Last Oral intake: Last Oral Intake NPO since 07:30 04/27/25 10:01 Meds taken in AM with sips of Yes 04/27/25 10:01 water? Meds patient instructed to take am of surgery Any additional information?: Yes NPO since: 07:30 (Patient finishes preop Ensure at 7:30 AM.) Meds taken in AM with sips of water?: Yes PONV PONV - overlock elastic attacher: PONV - overlock elastic attacher Female No 03/30/25 13:01 HX of Motion Sickness No 03/30/25 13:01 HX of N/V After Surgery No 03/30/25 13:01 Non-Smoker Yes 03/30/25 13:01 Duration of Surgery greater No 03/30/25 13:01 than 60 minutes Number of Risk Factors 1 03/30/25 13:01 PONV Score Low Risk 03/30/25 13:01 Height & Weight Height & Weight: Anesthesia: Height & Weight Height 5 ft 5 in 04/27/25 10:01 Weight: 70 kg 04/27/25 10:01 Body Mass Index (BMI) 25.7 04/27/25 10:01 Respiratory Assessment Respiratory Assessment - overlock elastic attacher: Respiratory Tract Infection Hx - overlock elastic attacher Hx Respiratory Tract Infection No 03/30/25 13:01 STOP Sleep Apnea STOP Sleep Apnea - overlock elastic attacher: STOP Sleep Apnea - overlock elastic attacher Hx Hypertension Yes: CONTROLLED WITH MED 03/30/25 13:01 Hx Sleep Apnea No 03/30/25 13:01 CPAP BIPAP Do you snore loudly (louder No 03/30/25 13:01 than talking or can be heard Do you often feel tired/ No 03/30/25 13:01 fatigued/ sleepy during daytime? Has anyone observed you stop No 03/30/25 13:01 breathing during sleep? STOP Results Negative 03/30/25 13:01 QUESTION #5 FULL TEXT : Do you snore loudly (louder than talking or can be heard through closed doors)? 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 Specify any problems Hx of Preganancy in last 3 N/A 03/30/25 13:01 Months Nurse Filling Out Transfusion VCHRISTIN 03/30/25 13:01 & Questions: Date: 03/30/25 03/30/25 13:01 Time: 13:07 03/30/25 13:01 Patient unable to answer at this time (ie. confused, unrespo /Reproduction History /Reproductive History - overlock elastic attacher: /Reproductive Hx- overlock elastic attacher Hx Now No 03/30/25 13:01 Gestational Age (in weeks): EDC: Hx Hx Para Hx Section SAB No 03/30/25 13:01 Active Medications Active Medications: Current Medications Generic Name Dose Route Start Last Admin Trade Name Nancy PRN Reason Stop Dose Admin Acetaminophen 1,000 mg 04/27/25 11:30 04/27/25 10:08 Acetaminophen 500 Mg Tablet PO 04/27/25 11:31 1,000 mg PREOP ONE Administration Celecoxib 400 mg 04/27/25 11:30 04/27/25 10:09 Celecoxib 200 Mg Capsule PO 04/27/25 11:31 400 mg PREOP ONE Administration Sodium Chloride 77.4 ml/ 0 ml 04/27/25 11:30 Ropivacaine 200 mg/ OPERA.SITE 04/27/25 11:31 Epinephrine HCl 0.6 mg/ INTRAOP ONE Ketorolac Tromethamine 30 mg/ Morphine Sulfate 5 mg Dexamethasone Sodium Phosphate 10 mg 04/27/25 11:30 Dexamethasone 10 Mg/Ml Vial IV 04/27/25 11:31 INTRAOP ONE Gabapentin 600 mg 04/27/25 11:30 04/27/25 10:09 Gabapentin 600 Mg Tablet PO 04/27/25 11:31 600 mg PREOP ONE Administration Clindamycin Phosphate 900 mg in 50 mls @ 75 mls/hr 04/27/25 11:30 Cleocin IV 04/27/25 12:09 INTRAOP ONE Tranexamic Acid 1,000 mg/ 110 mls @ 660 mls/hr 04/27/25 11:30 Sodium Chloride IV 04/27/25 11:39 INTRAOP ONE Tranexamic Acid 1,000 mg/ 110 mls @ 660 mls/hr 04/27/25 11:30 Sodium Chloride IV 04/27/25 11:39 INTRAOP ONE Lactated Ringer's 1,000 mls @ 999 mls/hr 04/27/25 11:30 IV 04/27/25 12:30 .Q1H1M GRANT Lactated Ringer's 1,000 mls @ 125 mls/hr 04/27/25 11:30 IV 04/27/25 19:29 .Q8H GRANT Magnesium Sulfate 1 gm/ 102 mls @ 408 mls/hr 04/27/25 11:30 04/27/25 10:08 Dextrose IV 04/27/25 11:44 408 mls/hr INTRAOP ONE Administration Lactated Ringer's 1,000 mls @ 15 mls/hr 04/27/25 10:00 04/27/25 10:08 IV 15 mls/hr .Q48H GRANT Administration Insulin Human Lispro 1 - 6 unit 04/27/25 11:30 Insulin Lispro 100 Unit/Ml Insuln.Pen SC 04/27/25 18:00 Q4H PRN PRN BG>/= 180, SEE PROTOCOL Protocol Sodium Chloride 10 - 40 ml 04/27/25 10:27 0.9% Saline Lock 10 Ml Syringe IV UD PRN Port-a-Cath (VAD)/R Port Flush Sodium Chloride 10 - 40 ml 04/27/25 10:27 0.9 % Nacl (Sterile) Posiflush 10 Ml IV UD PRN Port access or dressing change [facility] Medical History History of echocardiogram Cardiology follow-up encounter Full dentures Back pain Shortness of breath on exertion History of pain when walking History of edema Right inguinal hernia Osteopenia Emotional lability Encounter for chemotherapy management Encounter for education Adjustment disorder with anxiety 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 Regional lymph node metastasis present Wears glasses Anxiety Ambulates with cane Rheumatoid arthritis Cancer Prostate disease High cholesterol History of kidney stones History of hiatal hernia Hypertension Home Medications ?Medication ?Instructions ?Recorded ?Last Taken ?Type hydrochlorothiazide 12.5 mg tablet 12.5 mg PO DAILY 04/09/24 History meloxicam 15 mg tablet 15 mg PO DAILY 03/26/2403/30 History simvastatin 40 mg tablet 40 mg PO QHS 03/26/24 History lidocaine-prilocaine 2.5 %-2.5 % 1 applic topical ONCE PRN port 07/07/24 Unknown Rx topical cream access 30 days #30 grams losartan 25 mg tablet 50 mg PO QDAY 10/09/2404/27 07:30 History darolutamide 300 mg tablet (Nubeqa) 600 mg PO BID 12/2312/30/24 History leuprolide (3 month) 22.5 mg (3 22.5 mg IM .EVERY 3 MO NTHS 12/22/24 12/11/24 History month) intramuscular syringe kit acetaminophen 325 mg tablet 650 mg PO Q4H PRN pain 12/2304/26/25 History (Tylenol) cholecalciferol (vitamin D3) 25 25 mcg PO DAILY Unknown History mcg (1,000 unit) capsule (Vitamin D3) mupirocin 2 % topical ointment topical 04/16/25 Unknow n History Allergy/AdvReac Type Severity Reaction Status Date / Time Penicillins Allergy Severe Anaphylaxis Verified 04/27/25 09:58 lisinopril Allergy Intermediate Other Verified 04/27/25 09:58 cephalexin (From Keflex) Allergy Unknown Hives Verified 04/27/25 09:59 Family History Mother Cancer liver Grandfather Cancer Other Heart disease Hypertension Surgical History Hx of tooth extraction Status post tooth extraction H/O hernia repair S/P right inguinal hernia repair History of vascular access device H/O vasectomy H/O prostatectomy History of melanoma excision Social History Smoking Status: Former smoker Tobacco: How many years used: 1 alcohol intake: current alcohol intake frequency: a few times a month substance use type: marijuana Review of Systems (Anesthesia) ROS Narrative System reviewed and no additional complaints, except as documented.
[2025-04-27 11:29] LABS: Bedside Glucose 90 mg/dL (74-106)
[2025-04-27] MEDS: dexAMETHasone 10 MG/ML Vial IV (11:30)
[2025-04-27] MEDS: TXA 1000mg in NS100 100ml (IVPB at Closure) 660 MG IV (11:30)
[2025-04-27] MEDS: Clindamycin 900 MG/50 ML BAG 75 MG IV ×2 (11:40→16:27)
[2025-04-27] MEDS: TXA 1000mg in NS100 100ml (IVPB at Incision) 660 MG IV (11:40)
[2025-04-27] MEDS: JPS (Morphine 10mg/ml) OPERA.SITE (12:51)
--- NOTE | 2025-04-27 13:21 | PCM.POST.ANE ---
Anesthesia: Postop Eval I Current Vital Signs Temperature: 97 F Pulse Rate: 81 Blood Pressure: 96/64 Respiratory Rate: 16 Pulse Ox: 93 Oxygen Delivery Method: Room Air Assessment Airway patent: Yes Spontaneous unlabored respirations: Yes Mental status: Awake nausea: No Vomiting: No Anesthesia Complication: No Fluid Hydration Crystalloid volume administer (ml): 1,100 Total IV fluid infused: 1,100 Progress Note Anesthesia document: Postop Eval 1 completed: Yes
--- NOTE | 2025-04-27 13:37 | PCM.OPRPT ---
Operative Report (Standard) Operative Information Date of Procedure: 04/27/25 Pre-Operative Diagnosis: Left knee osteoarthritis Post-Operative Diagnosis: Left knee osteoarthritis Surgery/Procedure Performed: Robotic arm assisted left total knee arthroplasty continuous pickling line pickler: Yes Edi Manager: Sara Short Tasks completed by assistant signal maintainer: Opening & closing, Removing tissue, Implanting device and Hemostasis: Electrocautery Additional expanded duty dental assistant?: No Type of Anesthesia: Spinal/Supplemental RN Documented Start/Stop Times: Operation Date: 04/27/25 11:30 Case Time Into Pre-Op 04/27/25 09:44 Anesthesia Start 04/27/25 11:20 Into Room 04/27/25 11:20 Procedure Start 04/27/25 11:43 Procedure End 04/27/25 13:07 Anesthesia End 04/27/25 13:13 Out of Room 04/27/25 13:13 Into Recovery 04/27/25 13:16 Procedure Start Time: 11:43 Procedure Stop Time: 13:07 Select all DRAINS/GRAFTS/IMPLANTS that apply: Implanted device Implanted device details: [employer] press-fit CR femur size #5, press-fit tibia size #4, 10 mm CS polyethylene Estimated Blood Loss: 50 cc Specimen collected: No Description of surgery: Description of procedure: Patient was identified in the preoperative holding area by name, medical record number, and date of . Informed set was confirmed with the patient. The operative knee was marked with a surgical marker. At time of his procedure, patient brought to the operative suite and positioned supine a standard operating table. Anesthesia then administered a spinal anesthetic. He was then repositioned in the supine position with all bony prominences well-padded. We then placed a well-padded pneumatic tourniquet on the left upper thigh. The left upper extremity was brought across patient's chest throughout the procedure. We then prepped and draped the left lower extremity in a normal, sterile orthopedic fashion. We performed a timeout with all parties in attendance in agreement with the side, site, operation be performed. No concerns were voiced and would like to proceed with surgery. 600 mg clindamycin IV was administered prior to the incision by anesthesia staff as well as 1 g IV TXA. First exsanguinated the left lower extremity with a Esmarch bandage. Tourniquet was inflated to 280 mmHg., Which remained elevated for approximately 45 minutes. Esmarch was removed. I planned a standard midline approach to the left knee approximately 15 cm in length. Skin was sharply incised with a 10 blade scalpel developing full-thickness layers down to the retinaculum. Layers were developed identifying the VMO. I then planned a standard medial parapatellar arthrotomy performed in flexion. The anterior horn of the medial meniscus was released. Hoffa's fat pad was then released. I then everted the patella in extension and brought the knee into 90 degrees of flexion. The anterior horn of the lateral meniscus was then released. The ACL was split in its mid substance with a 10 blade. We then brought the knee back into extension. Patella cartilage appeared to be minimally degenerative. There was a prominent inferior pole osteophyte which was excised with a rongeur. I elected to leave the patella koi without resurfacing. I then placed pins in the metaphyseal distal femur medial to lateral for the Virgil arrays. In similar fashion, I made a 2 cm incision approximately a handsbreadth distal to the tibial tubercle along the medial aspect of the tibia, drilling 2 bicortical pins for the tibial array. The knee was brought into flexion. The patella was subluxed laterally but not everted. Medial lateral retractors were placed. We then utilized the [email or web address] software to confirm our planned surgical procedure and oriented with the patient's osseous anatomy. All checks with the [email or web address] system were confirmed. Patient had a significant fixed varus deformity after performing stress examination utilizing the [email or web address] software. We elected to place the tibial baseplate in approximately 3 degrees of varus to allow for appropriate balancing. Sawblade was then brought in. I first started with the tibial cut, ensuring protection of the MCL and patellar tendon. A tibial wafer was then excised. I then proceeded to make the posterior femoral, anterior, anterior chamfer cuts with the same blade. Ligaments were protected with [employer] retractors. Sawblade was then exchanged to perform the distal femoral and posterior chamfer cuts. The robot was then removed from the surgical field. Remaining loose bone and meniscus was excised carefully. Posterior osteophytes were removed from the distal femur with a curved osteotome and rongeur. Trial components were then placed. Balance was excellent in both extension and 90 degrees flexion. No mid flexion instability was apparent. Patella was reduced. Tracking was excellent. We then marked for tibial baseplate. Distal femoral pegs were drilled. Tibial keel was punched. Press-fit guide was then used and drilled in typical fashion. Trials were removed. Periarticular block was administered. Dilute sterile Betadine was then used to perform a 3-minute soak. The wound was copiously irrigated with normal saline solution. Tourniquet was deflated. Hemostasis was excellent. An additional 1 g TXA was administered IV. The press-fit tibial and subsequently femoral components were impacted with excellent pullout strength. I trialed a 10 mm polyethylene insert which demonstrated excellent balancing and no remaining flexion contracture. I selected a size 10 mm polyethylene which was placed and impacted per senior premium auditor recommendations. Final components appeared very well balanced with excellent range of motion. The wound was copiously irrigated with normal saline solution. Capsule was closed watertight with #1 strata fix barbed suture. Deeper report muscle layer was reapproximated with 0 Vicryl suture. Dermis was reapproximated buried interrupted 2-0 Vicryl suture. Skin was finally reapproximated vladimir. Patient tolerated the procedure well without apparent complication. He was safely awakened in the operative suite, transferred to his hospital bed and subsequently to PACU in stable condition. Need for skilled expanded duty dental assistant: Sara Short PA-C was critical to the outcome of the case. During the course of the procedure the physician expanded duty dental assistant played a vital role. Her intimate knowledge of my steps in the procedure aided in safe and expedient completion of the procedure. The PA played a vital role in positioning particularly in obtaining the appropriate positioning. The PA was also vital in the retraction of soft tissues during the exposure and projecting vital structures. The PA was also vital and protecting soft tissues during times of bony cuts. She also played a vital role in closure with my direct supervision. The PA was also important during reduction and dislocation of the joint and trials intraoperatively. Post Operative Plan: Plan for same-day discharge once same-day surgery criteria is met. Outpatient physical therapy scheduled for postoperative day #2. Weightbearing: Range of motion and weightbearing as tolerated left lower extremity. Antibiotics: Additional dose of the clindamycin prior to discharge. DVT Prophylaxis: 2 weeks Xarelto postoperatively being postoperative day #1 and then transition to aspirin 81 mg twice daily for DVT prophylaxis x 2 additional weeks. Negron: None Dressing: Maintain silver dressing x5 days X-Rays: 2-week x-rays in the office. Follow-up: 2 weeks in my office for staple removal consent Surgical Findings: Fixed varus deformity with flexion contracture, resolved following final implantation. Excellent tracking. Complications Complications: No Admit VTE Documentation VTE Present on Admission: No VTE Mechan Device Prophylaxis: SCD's and Thigh High DENITA Hose VTE Pharm Prophylaxis ordered?: Yes
--- NOTE | 2025-04-27 13:45 | RAD_ITS ---
PROCEDURE: KNEE 1 OR 2 VIEWS 04/27/2025 REASON FOR EXAM: S/P LEFT TOTAL KNEE TECHNIQUE: KNEE 1 OR 2 VIEWS COMPARISON: Left lower extremity CT on 04/02/2025 FINDINGS: Postoperative changes from left total knee arthroplasty with patellar resurfacing. No immediate hardware complication. There are anterior skin vladimir with subcutaneous emphysema and air in the joint space. Vascular calcifications in the soft tissues. RAD/Knee 1 or 2 Views IMPRESSION: Expected postoperative findings following left total knee arthroplasty. Reading Location: [facility]
[2025-04-27] MEDS: LR 1,000 ML - BOLUS POSTOP 999 ML IV (13:59)
--- NOTE | 2025-04-27 16:43 | POSTOPAN2_ITS ---
Anesthesia Postop Eval I Sum Postop Eval Completion status Anesthesia document: Postop Eval 1 completed: Yes Anesthesia Postop Eval I Summary Anesthesia Postop Eval I Summary: Anesthesia Postop Eval I: Assessment Summary Airway patent Yes 04/27/25 13:22 COUNTRY SALES [email or web address] Spontaneous unlabored Yes 04/27/25 13:22 COUNTRY SALES MANAGER.[email or web address] respirations Mental status Awake 04/27/25 13:22 COUNTRY SALES [email or web address] nausea No 04/27/25 13:22 COUNTRY SALES MANAGER.[email or web address] Vomiting No 04/27/25 13:22 COUNTRY SALES MANAGER.[email or web address] Anesthesia Postop Eval I: Fluid Summary Crystalloid volume administer 1,100 04/27/25 13:22 COUNTRY SALES MANAGER.[email or web address] (ml) Colloids volume administered ( ml) Blood Product volume administered (ml) Total IV fluid infused 1,100 04/27/25 13:22 COUNTRY SALES MANAGER.[email or web address] Anesthesia Postop Eval I: Summary Notes Anesthesia Complication No 04/27/25 13:22 COUNTRY SALES MANAGER.ANH Anesthesia Complication Comment: Post-operative progress note Anesthesia: Postop Eval II Evaluation Mental status: Awake Pain Level: 2 nausea: No Vomiting: No
--- NOTE | 2025-04-27 16:43 | PCM.POSTANE2 ---
Anesthesia Postop Eval I Sum Postop Eval Completion status Anesthesia document: Postop Eval 1 completed: Yes Anesthesia Postop Eval I Summary Anesthesia Postop Eval I Summary: Anesthesia Postop Eval I: Assessment Summary Airway patent Yes 04/27/25 13:22 REMARKETING [email or web address] Spontaneous unlabored Yes 04/27/25 13:22 REMARKETING REP.[email or web address] respirations Mental status Awake 04/27/25 13:22 REMARKETING REP.[email or web address] nausea No 04/27/25 13:22 REMARKETING REP.[email or web address] Vomiting No 04/27/25 13:22 REMARKETING REP.[email or web address] Anesthesia Postop Eval I: Fluid Summary Crystalloid volume administer 1,100 04/27/25 13:22 REMARKETING REP.JCLI (ml) Colloids volume administered ( ml) Blood Product volume administered (ml) Total IV fluid infused 1,100 04/27/25 13:22 REMARKETING REP.[email or web address] Anesthesia Postop Eval I: Summary Notes Anesthesia Complication No 04/27/25 13:22 REMARKETING REP.ANH Anesthesia Complication Comment: Post-operative progress note Anesthesia: Postop Eval II Evaluation Mental status: Awake Pain Level: 2 nausea: No Vomiting: No
[2025-04-27] MEDS: oxyCODONE 5 MG Tablet PO (16:56)
== END 2025-04-27 17:32 | disposition home or self-care (01) ==
LOC: SDC 09:38 → AC 09:41
PROVIDERS: Student in an Organized Health Care Education/Training Program; PCP Nurse Practitioner Family; Referring Provider Student in an Organized Health Care Education/Training Program; Visit Provider Student in an Organized Health Care Education/Training Program
PROC: 0SRD0JZ Replacement of Left Knee Joint with Synthetic Substitute, Open Approach (ICD-10-PCS; CPT 27447; principal; 2025-04-27 11:00)
DX: M17.12 Unilateral primary osteoarthritis, left knee (principal); M06.9 Rheumatoid arthritis, unspecified; M21.162 Varus deformity, not elsewhere classified, left knee; I10 Essential (primary) hypertension; M85.80 Other specified disorders of bone density and structure, unspecified site; E78.00 Pure hypercholesterolemia, unspecified; Z79.899 Other long term (current) drug therapy; Z87.891 Personal history of nicotine dependence
CPT/HCPCS: 27447; S2900; 01402; 64447; 36415; 73560; 82040; 82962; 83735; 87077; 87081; 97162; C1776; A4216; J2405; J3475

== ENCOUNTER → 2025-05-12 | Outpatient (CLI) | payer MEDICARE, SELFPAY ==
--- NOTE | 2025-05-12 13:56 | VDLE_ITS ---
Reason For Study Reason For Study: LLE Swelling RIGHT LEFT FV is compressible, spontaneous, phasic, competent GSV is normal. and demonstrates normal augmentation. CFV is compressible, spontaneous, phasic, competent, Procedure and demonstrates normal augmentation. This is a venous duplex using B-mode, color flow and FV is compressible, spontaneous, phasic, competent spectral Doppler. and demonstrates normal augmentation. Exam performed in department. POP V is compressible, spontaneous, phasic, competent The exam was diagnostic. and demonstrates normal augmentation. A preliminary report was called and/or faxed to T/P Trunk is compressible. [facility]. PTV is compressible. LT PerV is compressible. VL/Venous Duplex US, Unilateral Interpretation Summary Deep veins of the left lower extremity are patent and compressible segmentally. There is no evidence of left lower extremity deep vein thrombosis. Valvular competence appears intact within the p roximal deep venous system on the left . The left great saphenous vein appears patent and compressible segmentally. The right femoral vein is patent and competent. Ordering Physician: Darleen Sierra Referring Physician: Cassie Roth Performed By: Kamlesh Price RVT
== END | disposition home or self-care (01) ==
LOC: CVS 13:55
PROVIDERS: PCP Nurse Practitioner Family
DX: M79.662 Pain in left lower leg (principal); R22.42 Localized swelling, mass and lump, left lower limb
CPT/HCPCS: 93971

== ENCOUNTER 2025-05-26 08:30 | Outpatient (RCR) | payer MEDICARE, SELFPAY ==
--- NOTE | 2025-04-29 10:31 | HP.PTEVAL_ITS ---
Patient's Visit Information Visit Information Visit Information: DALILA JANSEN is a 69 year old M referred to Physical Therapy by Dr. Niranjan Shipman DO with a diagnosis of L TKA 04/27/25. Date of Evaluation: 04/29/25 Physical Therapist: Smooth Sadler, PT, ATC Visit Plan Frequency: 2x /Week Duration: 4-6 Weeks Plan: L knee PROM/mobs, stretching and strengthening, balance and proprio, core strengthening, nustep, gait training, stair negotiation, and HEP Subjective Subjective: TKA on Sunday of this week (April 27 2025). Pain causing difficulty with work previously and was just having constant pain even at rest, pt decided to retire. Pain is described as an ache and is currently throughout the entire leg and into calf and thigh. Currently non weight bearing due to pain but not per orders and has follow-up appt in 2 weeks. Pain worse with weight bearing and is better when of loaded. Pt has been doing exercises that gave him ev eryday but was told every hour but this has been causing pain. Pt reports that he is able to do ADLs and is allowed to shower today but is having difficulty sleeping. Pt reports taking pain pills but can only maintain about 3-4 hours of sleep at a time. Pt reports having 3 steps to enter home with hand rails on both sides, and also has hand rails in the shower. Pt reports limited activity and participation due to knee pain and would like to return to being outside. Pt has just fishing chemotherapy in October. 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 TU sec MMT: L knee flex= 17, ext= 4 #F; R knee flex= 38, ext= 46 #F ROM: R knee 0-130 degrees ; L knee 0-20-74 degrees Gait: Pt ambulates with no toe off. Pt ambulates with stiff knee. Balance/Special Test Scores WOMAC Total Score: 85 WOMAC Percentatge: 11.4600 Goals Goal 1:: Decrease L knee pain x 50% to aid with sleep Goal Time Frame: 4-6 Weeks Goal 2:: Increase L knee ROM x 40 degrees to aid with restoring a more normalized gait pattern Goal Time Frame: 4-6 Weeks Goal 3:: Increase L knee strength to equal 90% of L knee strength to aid with stair negotiation Goal Time Frame: 4-6 Weeks Goal 4:: I with HEP Goal Time Frame: 4-6 Weeks Rehabilitation Potential Physical Therapy Diagnosis: Pt has L knee pain, weakness, and limited ROM secondary to L TKA Rehabilitation Potential: Good Anticipated Interventions Patient/Client Instruction: Educate patient on: Condition and Plan of Care For the Purpose of:: To improve self management Therapeutic Exercise to Include: Strength training, Endurance training, Balance training, Flexibilty training, Gait and locomotor training, Passive ROM, Active ROM and Dynamic Lumbar Stabilization For the Purpose of:: To decrease pain, To increase ROM and To improve muscle performance and motor function Cryotherapy (ice pack, ice massage): Yes For the Purpose of:: To decrease pain Text: Thank you for the opportunity to evaluate your patient. For Medicare and Medicare HMO plans, please review the plan of care and approve it. It will need to be FAXED BACK to us at [phone] for Medicare purposes. For Medicare only, by signing this I certify the plan of care. Please let me know if there are questions or concerns regarding this plan of care. Physician Signature: Date:
--- NOTE | 2025-05-26 09:00 | HP.PTDCSUM ---
Discharge Summary D/C summary: It has been my pleasure to treat DALILA JANSEN referred by Dr. Niranjan Shipman DO, with the diagnosis of L TKA 04/27/25 for a total of 9 visit(s). Discharge Date: Please see the following information for a summary of their discharge status. Subjective Subjective: I feel like I am ready to be done. Pain L knee: Pain Intensity (Out of 10): 0 Overall Improvement % Improvement: 80 Objective Objective/Function: L knee pain ranges 0-2/10 L knee ROM: 0-120 degrees L knee MMT: flex= 34, ext= 38 #F Pt is I with HEP Goals Goal 1:: Decrease L knee pain x 50% to aid with sleep Goal Progress: Goal Met Goal 2:: Increase L knee ROM x 40 degrees to aid with restoring a more normalized gait pattern Goal Progress: Goal Met Goal 3:: Increase L knee strength to equal 90% of L knee strength to aid with stair negotiation Goal Progress: Progressing Goal 4:: I with HEP Goal Progress: Goal Met Plan Plan: Discharge to HEP D/C Information d/c sentence: If there are questions or concerns regarding this patient's physical therapy, please feel free to call me at [phone]. Thank you for the referral of this patient. Sincerely, Smooth Sadler, PT, ATC Balance/Gait/Functional tests Balance/Special Test Scores WOMAC Total Score: 24 WOMAC Percentage: 75.0000 Improvement % Improvement: 80
== END 2025-05-26 19:00 | disposition home or self-care (01) ==
LOC: PT 08:30
PROVIDERS: PCP Nurse Practitioner Family; Referring Provider Student in an Organized Health Care Education/Training Program; Visit Provider Student in an Organized Health Care Education/Training Program
DX: M17.12 Unilateral primary osteoarthritis, left knee (principal)
CPT/HCPCS: 97110; 97140; 97161; 97530